=== PATIENT | male | born 1960 | race African-American/Black ===

== ENCOUNTER 2018-09-24 18:43 | Inpatient (IN) ==
[2018-09-24] MEDS ORDERED: SODIUM CHLORIDE 0.9% 1000ML 1,000 ML IV ONE (18:57)
--- NOTE | 2018-09-24 19:14 | XRay Report ---
XR chest 1V portable CLINICAL HISTORY: 58 years-old Male presenting with Sepsis. TECHNIQUE: Portable upright AP view of the chest was obtained. COMPARISON: 09/23/2018. FINDINGS: Atherosclerosis of the aortic arch. Cardiac silhouette mildly enlarged. No focal opacity. No large ef fusion or pneumothorax. Osseous structures normal. Upper abdomen normal. IMPRESSION: 1. Mildly cardiomegaly. No other convincing evidence of acute cardiopulmonary disease. Electronically signed by: Alon Corcoran M.D. 09/24/2018 7:12 PM
--- NOTE | 2018-09-24 19:17 | Emergency Department Note ---
Entered by Mone Rider acting as a scribe for Jerry Dominique DO History of Present Illness General Chief complaint: Abnormal Labs/Diagnostic Testing Stated complaint: ABN LAB Source: patient Limitations: no limitations History of Present Illness Provider complaint: Abnormal Labs Onset (ago): day(s) 4 Maximum Pain Intensity: 8 Associated symptoms: + denies other symptoms (-urinary symptoms), + diaphoresis, + fever/chills and + other (+muscle aches); no cough and no rash Treatments prior to arrival: other (+Levaquin) The patient is a 58 year old male who presents to the Emergency Room for abnormal labs. The patient states that he began feeling sick 4 days prior to arrival. The patient states that he has muscle aches, diaphoresis, and fevers. The patient denies any cough, urinary symptoms, or rashes. The patient states that he was at the ED yesterday for his illness but states that he was discharged with Levaquin. The patient states that he has a history of type 2 diabetes. Home Medications Home Medications Medication Instructions Recorded Confirmed Type acetaminophen 1,000 mg PO QID PRN 09/23/18 09/24/18 History aspirin [Aspirin Low Dose] 81 mg PO DAILY 09/23/18 09/24/18 History atorvastatin 40 mg PO HS 09/23/18 09/24/18 History bismuth subsalicylate [Bismatrol] 1,050 mg PO QID 09/23/18 09/24/18 History cyanocobalamin (vitamin B-12) 100 mcg PO DAILY 09/23/18 09/24/18 History [Vitamin B-12] duloxetine 60 mg PO HS 09/23/18 09/24/18 History folic acid 1 mg PO DAILY 09/23/18 09/24/18 History insulin NPH and regular human 40 unit SUBCUT BID 09/23/18 09/24/18 History [Humulin 70/30 U-100 Insulin] insulin regular human [Humulin R 1 sliding scale dose SUBCUT 09/23/18 09/24/18 History Regular U-100 Insuln] USEASDIRECTD lisinopril 2.5 mg PO DAILY 09/23/18 09/24/18 History metformin 1,000 mg PO BID 09/23/18 09/24/18 History timolol 1 drp OPB BID 09/23/18 09/24/18 History ibuprofen 400 mg PO QID PRN 09/24/18 09/24/18 History levofloxacin 750 mg PO BID 09/24/18 09/24/18 History Allergies Allergy/AdvReac Type Severity Reaction Status Date / Time No Known Allergies Allergy Unverified 09/24/18 20:24 Past Med/Surg History Medical History Hepatitis C (Chronic) Diabetes (Chronic) No significant family history No significant past surgical history Social History Preferred Language: Indonesian Communication Ability: Effective Top Lift Cutter Required: No Beliefs That Will Affect Care: None Current Living Situation: Other Current Living Situation Comment: [facility] Other Information That Helps Us Care for You: No Feels Safe at Home: Yes Safety Concerns: Feels Safe At This Time Smoking Status: Never smoker Hx Alcohol Use: No Hx Substance Use: No Review of Systems See HPI for pertinent positives & negatives. and A total of 10 systems reviewed and were otherwise negative Physical Exam Vital Signs Vital Signs - 24 hr 09/24/18 18:47 09/24/18 18:57 09/24/18 19:02 Temperature 36.9 C 37.9 C H Temperature Source Oral Oral Sepsis Recent Fever Within 48 Hours Yes Sepsis New/Unexplained Change in Mental Status No Sepsis Action Taken by Nursing No Action Required Pulse Rate 83 Pulse Rate [Finger] Respiratory Rate 18 Blood Pressure 136/70 Blood Pressure [Right Arm] Blood Pressure Mean 92 Blood Pressure Mean [Right Arm] Pulse Oximetry 96 97 Oxygen Delivery Method Room Air Room Air 09/24/18 19:15 09/24/18 20:40 Temperature 37.6 C H Temperature Source Oral Sepsis Recent Fever Within 48 Hours Sepsis New/Unexplained Change in Mental Status Sepsis Action Taken by Nursing Pulse Rate Pulse Rate [Finger] 76 69 Respiratory Rate 18 18 Blood Pressure Blood Pressure [Right Arm] 135/67 142/72 H Blood Pressure Mean Blood Pressure Mean [Right Arm] 89 95 Pulse Oximetry 95 99 Oxygen Delivery Method Room Air Room Air GENERAL: Patient is awake, alert, and in no acute distress.Patient is resting comfortably and showing no signs of anxiety EYES: The conjunctivae are clear. The pupils are round and reactive. EARS, NOSE, MOUTH AND THROAT: The nose is without any evidence of any deformity. Mucous membranes are moist.Tongue is midline NECK: The neck is nontender and supple. RESPIRATORY: Normal respiratory effort is noted. There is no evidence of wheezing rhonchi or rales to auscultation. CARDIOVASCULAR: Regular rate and rhythm noted. There no murmurs rubs or gallops normal S1 normal S2 GASTROINTESTINAL: The abdomen is soft. Bowel sounds are present in all quadrants. Abdomen is nontender. : Circumcised male genitalia was appreciated. There were no lesions or ulcerations noted. Testicles were descended and nontender bilaterally. Scant discharge was noted at the urethral meatus. MUSCULOSKELETAL/EXTREMITIES: There is no evidence of gross deformity. Full range of motion is noted in the hips and shoulders. SKIN: There is no obvious evidence of any rash. Trace pedal edema was noted gerardo aterally. NEUROLOGIC: Patient is awake alert and oriented x3. Course 1851: The patient was evaluated in room C2B, and a complete history and physical examination were performed. 2014: I checked on the patient. The patient was updated on their imaging and lab results. 2119: I discussed the patient's case with Dr[facility] who will evaluate the patient for further hospitalization. Consultations Consultation #1: Dr. Tera Patel Time: 20:15 Administered Medications Aspirin (Ecotrin Ectab) 81 mg PO DAILY PAUL Stop: 10/25/18 08:59 Last Admin: 09/25/18 08:49 Dose: 81 mg Documented by: [id number] Cyanocobalamin (Vitamin B-12) 100 mcg PO DAILY PAUL Stop: 10/25/18 08:59 Last Admin: 09/25/18 08:50 Dose: 100 mcg Documented by: [id number] Enoxaparin Sodium (Lovenox) 40 mg SQ Q24H PAUL Stop: 10/25/18 08:59 Last Admin: 09/25/18 08:50 Dose: 40 mg Documented by: [id number] Folic Acid (Folvite) 1 mg PO DAILY PAUL Stop: 10/25/18 08:59 Last Admin: 09/25/18 08:49 Dose: 1 mg Documented by: [id number] Sodium Chloride (Nss 1000ml) 1,000 mls @ 100 mls/hr IV .Q10H PAUL Stop: 10/24/18 22:46 Last Admin: 09/25/18 09:12 Dose: 100 mls/hr Documented by: [id number] Infusion: 09/25/18 09:12 Dose: 100 mls/hr Documented by: [id number] Admin: 09/24/18 23:35 Dose: 100 mls/hr Documented by: [id number] Piperacillin Sod/Tazobactam (Sod 4.5 gm/ Dextrose) 120 mls @ 30 mls/hr IV Q8H [facility]; Protocol Stop: 10/09/18 03:59 Last Admin: 09/25/18 11:33 Dose: 30 mls/hr Documented by: [id number] Infusion: 09/25/18 07:38 Dose: 0 mls/hr Documented by: [id number] Admin: 09/25/18 03:15 Dose: 30 mls/hr Documented by: [id number] Famotidine 20 mg/ Syringe 5 mls @ 2.5 mls/min IV BID [facility] Stop: 10/25/18 05:24 Last Admin: 09/25/18 05:43 Dose: 2.5 mls/min Documented by: [id number] Vancomycin HCl 1,250 mg/ (Sodium Chloride) 275 mls @ 125 mls/hr IV Q12 [facility] Stop: 10/09/18 08:59 Last Infusion: 09/25/18 11:23 Dose: 0 mls/hr Documented by: [id number] Admin: 09/25/18 08:49 Dose: 125 mls/hr Documented by: [id number] Insulin Aspart (Novolog Flexpen) 0 units SC ACHS [facility] Stop: 10/25/18 07:29 Last Admin: 09/25/18 12:46 Dose: 5 units Documented by: [id number] Cosigned by: [id number] Admin: 09/25/18 08:55 Dose: 3 units Documented by: [id number] Cosigned by: [id number] Insulin Human Isoph/Insulin Regular (Novolin 70/30 Regular) 40 units SQ BIDM [facility] Stop: 10/25/18 07:59 Last Admin: 09/25/18 08:51 Dose: 40 units Documented by: [id number] Cosigned by: [id number] Timolol Maleate (Timoptic 0.5% Oph) 1 drops OPB BID [facility] Stop: 10/25/18 08:59 Last Admin: 09/25/18 08:49 Dose: 1 drops Documented by: [id number] Discontinued Medications Diphenhydramine HCl (Benadryl) 25 mg IV NOW STA Stop: 09/25/18 05:22 Last Admin: 09/25/18 05:43 Dose: 25 mg Documented by: [id number] Sodium Chloride (Nss 1000ml) 1,000 mls @ 999 mls/hr IV .Q1H1M ONE Stop: 09/24/18 19:57 Last Infusion: 09/24/18 20:17 Dose: 0 mls/hr Documented by: [id number] Admin: 09/24/18 19:16 Dose: 999 mls/hr Documented by: [id number] Levofloxacin/Dextrose (Levaquin/D5w) 750 mg in 150 mls @ 100 mls/hr IV NOW STA Stop: 09/24/18 22:36 Last Infusion: 09/24/18 23:35 Dose: 0 mls/hr Documented by: [id number] Admin: 09/24/18 21:35 Dose: 100 mls/hr Documented by: [id number] Vancomycin HCl 2,250 mg/ (Sodium Chloride) 545 mls @ 200 mls/hr IV NOW ONE; Protocol Stop: 09/24/18 23:50 Last Infusion: 09/25/18 00:03 Dose: 0 mls/hr Documented by: [id number] Admin: 09/24/18 21:43 Dose: 200 mls/hr Documented by: [id number] Piperacillin Sod/Tazobactam (Sod 4.5 gm/ Dextrose) 120 mls @ 230 mls/hr IV NOW STA; Protocol Stop: 09/24/18 23:28 Last Infusion: 09/25/18 00:36 Dose: 0 mls/hr Documented by: [id number] Admin: 09/25/18 00:05 Dose: 230 mls/hr Documented by: [id number] Methylprednisolone 60 mg/ (Syringe) 0.96 mls @ 1.5 mls/min IV ONE ONE Stop: 09/25/18 05:31 Last Admin: 09/25/18 05:43 Dose: 1.5 mls/min Documented by: [id number] Medical Decision Making Differential Diagnosis Differential diagnosis includes: viral syndrome, otitis, pharyngitis, pneumonia, influenza, meningitis, urinary tract infection, sepsis, bacteremia, as well as others were entertained. Medical Records Attestation: I reviewed the patient's medical records. Home Medications Current Medication List: was personally reviewed by me Laboratory Data Attestation: I reviewed the patient's lab results. Result diagrams: 09/25/18 05:21 09/25/18 05:21 Lab Results 09/24/18 09/24/18 09/24/18 Range/Units 19:49 19:49 20:23 WBC 12.42 H (4.8-10.8) K/uL RBC 4.43 L (4.7-6.1) M/uL Hgb 13.7 L (14.0-18.0) g/dL Hct 38.5 L (42-52) % MCV 86.9 (80-100) fL MCH 30.9 (25-34) pg MCHC 35.6 (32-36) g/dL RDW Std Deviation 42.2 (36.4-46.3) fL RDW Coeff of Marjorie 13.1 (11.5-14.5) % Plt Count 118 L (130-400) K/uL MPV 11.0 H (7.4-10.4) fL Immature Gran % (Auto) 0.6 % Neut % (Auto) 75.7 % Lymph % (Auto) 10.9 % Heard % (Auto) 12.5 % Eos % (Auto) 0.1 % Baso % (Auto) 0.2 % Immature Gran # (Auto) 0.08 H (0.00-0.02) K/uL Neut # (Auto) 9.40 H (1.4-6.5) K/uL Lymph # (Auto) 1.35 (1.2-3.4) K/uL Heard # (Auto) 1.55 H (0.11-0.59) K/uL Eos # (Auto) 0.01 (0-0.5) K/uL Baso # (Auto) 0.03 (0-0.2) K/uL ESR (0-14) mm/hr PT (9.0-12.0) Seconds INR (0.9-1.1) APTT (21.0-31.0) Seconds PTT Ratio VBG pH (7.36-7.41) VBG pCO2 (38-50) mmHg VBG pO2 mmHg VBG HCO3 mmol/L VBG O2 Saturation % VBG Base Excess mEq/L Barometric Pressure mm/Hg Sodium (136-145) mmol/L Potassium (3.5-5.1) mmol/L Chloride (98-107) mmol/L Carbon Dioxide (21-32) mmol/L Anion Gap (3-11) BUN (7-18) mg/dl Creatinine (0.6-1.4) mg/dl Est Cr Clr Drug Dosing ml/min Est GFR ( Amer) Est GFR (Non-Af Amer) BUN/Creatinine Ratio (10-20) Glucose (70-99) mg/dl Estimat Average Glucose mg/dl Hemoglobin A1c (4.5-5.6) % Lactate (0.4-2.0) mmol/L Calcium (8.5-10.1) mg/dl Magnesium (1.8-2.4) mg/dl Total Bilirubin (0.2-1) mg/dl AST (15-37) U/L ALT (12-78) U/L Alkaline Phosphatase (45-117) U/L Total Creatine Kinase (39-308) U/L CK-MB (CK-2) (0.5-3.6) ng/ml CK/CKMB % Calc Troponin I (0-0.045) ng/ml Total Protein (6.4-8.2) gm/dl Albumin (3.4-5.0) gm/dl Globulin (2.5-4.0) gm/dl Albumin/Globulin Ratio (0.9-2) Procalcitonin (0-0.5) ng/ml Urine Color [place]er Urine Appearance Clear (Clear) Urine pH 5.5 (4.5-7.5) Ur Specific [place] 1.039 H (1.000-1.030) Urine Protein 2+ H (Negative) Urine Glucose (UA) Trace H (Negative) Urine Ketones 1+ H (Negative) Urine Blood Negative (Negative) Urine Nitrite Positive A (Negative) Urine Bilirubin Negative (Negative) Urine Urobilinogen Positive H (Negative) Ur Leukocyte Esterase Trace H (Negative) Urine WBC (Auto) 1-5 (0-5) /hpf Urine RBC (Auto) 5-10 H (0-4) /hpf U Hyaline Cast (Auto) 5-10 H (0-5) /lpf U Epithel Cells (Auto) >30 H (0-5) /lpf Urine Bacteria (Auto) Negative (Negative) Urine Opiates Screen Pos H (Neg) Ur Methadone, Qual Neg (Neg) Urine Barbiturates Neg (Neg) Ur Phencyclidine (PCP) Neg (Neg) U Amphetamin/Meth Scrn Neg (Neg) MDMA (Ecstasy) Screen Neg (Neg) U Benzodiazepines Scrn Neg (Neg) Ur Cocaine Metabolite Neg (Neg) U Marijuana (THC) Screen Neg (Neg) 09/24/18 09/24/18 09/24/18 Range/Units 20:23 20:23 20:23 WBC (4.8-10.8) K/uL RBC (4.7-6.1) M/uL Hgb (14.0-18.0) g/dL Hct (42-52) % MCV (80-100) fL MCH (25-34) pg MCHC (32-36) g/dL RDW Std Deviation (36.4-46.3) fL RDW Coeff of Marjorie (11.5-14.5) % Plt Count (130-400) K/uL MPV (7.4-10.4) fL Immature Gran % (Auto) % Neut % (Auto) % Lymph % (Auto) % Heard % (Auto) % Eos % (Auto) % Baso % (Auto) % Immature Gran # (Auto) (0.00-0.02) K/uL Neut # (Auto) (1.4-6.5) K/uL Lymph # (Auto) (1.2-3.4) K/uL Heard # (Auto) (0.11-0.59) K/uL Eos # (Auto) (0-0.5) K/uL Baso # (Auto) (0-0.2) K/uL ESR 54 H (0-14) mm/hr PT 12.6 H (9.0-12.0) Seconds INR 1.2 H (0.9-1.1) APTT 29.3 (21.0-31.0) Seconds PTT Ratio 1.1 VBG pH (7.36-7.41) VBG pCO2 (38-50) mmHg VBG pO2 mmHg VBG HCO3 mmol/L VBG O2 Saturation % VBG Base Excess mEq/L Barometric Pressure mm/Hg Sodium 141 (136-145) mmol/L Potassium 3.6 (3.5-5.1) mmol/L Chloride 109 H (98-107) mmol/L Carbon Dioxide 26 (21-32) mmol/L Anion Gap 7.0 (3-11) BUN 17 (7-18) mg/dl Creatinine 1.14 (0.6-1.4) mg/dl Est Cr Clr Drug Dosing 87.4 ml/min Est GFR ( Amer) 81.1 Est GFR (Non-Af Amer) 70.0 BUN/Creatinine Ratio 15.3 (10-20) Glucose 144 H (70-99) mg/dl Estimat Average Glucose mg/dl Hemoglobin A1c (4.5-5.6) % Lactate (0.4-2.0) mmol/L Calcium 7.9 L (8.5-10.1) mg/dl Magnesium 2.0 (1.8-2.4) mg/dl Total Bilirubin 0.9 D (0.2-1) mg/dl AST 36 (15-37) U/L ALT 23 (12-78) U/L Alkaline Phosphatase 67 (45-117) U/L Total Creatine Kinase 410 H (39-308) U/L CK-MB (CK-2) < 1.0 (0.5-3.6) ng/ml CK/CKMB % Calc TNP Troponin I 0.017 (0-0.045) ng/ml Total Protein 6.3 L D (6.4-8.2) gm/dl Albumin 2.3 L (3.4-5.0) gm/dl Globulin 4.0 (2.5-4.0) gm/dl Albumin/Globulin Ratio 0.6 L (0.9-2) Procalcitonin (0-0.5) ng/ml Urine Color Urine Appearance (Clear) Urine pH (4.5-7.5) Ur Specific [place] (1.000-1.030) Urine Protein (Negative) Urine Glucose (UA) (Negative) Urine Ketones (Negative) Urine Blood (Negative) Urine Nitrite (Negative) Urine Bilirubin (Negative) Urine Urobilinogen (Negative) Ur Leukocyte Esterase (Negative) Urine WBC (Auto) (0-5) /hpf Urine RBC (Auto) (0-4) /hpf U Hyaline Cast (Auto) (0-5) /lpf U Epithel Cells (Auto) (0-5) /lpf Urine Bacteria (Auto) (Negative) Urine Opiates Screen (Neg) Ur Methadone, Qual (Neg) Urine Barbiturates (Neg) Ur Phencyclidine (PCP) (Neg) U Amphetamin/Meth Scrn (Neg) MDMA (Ecstasy) Screen (Neg) U Benzodiazepines Scrn (Neg) Ur Cocaine Metabolite (Neg) U Marijuana (THC) Screen (Neg) 09/24/18 09/24/18 09/24/18 Range/Units 20:23 20:23 20:23 WBC (4.8-10.8) K/uL RBC (4.7-6.1) M/uL Hgb (14.0-18.0) g/dL Hct (42-52) % MCV (80-100) fL MCH (25-34) pg MCHC (32-36) g/dL RDW Std Deviation (36.4-46.3) fL RDW Coeff of Marjorie (11.5-14.5) % Plt Count (130-400) K/uL MPV (7.4-10.4) fL Immature Gran % (Auto) % Neut % (Auto) % Lymph % (Auto) % Heard % (Auto) % Eos % (Auto) % Baso % (Auto) % Immature Gran # (Auto) (0.00-0.02) K/uL Neut # (Auto) (1.4-6.5) K/uL Lymph # (Auto) (1.2-3.4) K/uL Heard # (Auto) (0.11-0.59) K/uL Eos # (Auto) (0-0.5) K/uL Baso # (Auto) (0-0.2) K/uL ESR (0-14) mm/hr PT (9.0-12.0) Seconds INR (0.9-1.1) APTT (21.0-31.0) Seconds PTT Ratio VBG pH 7.45 H (7.36-7.41) VBG pCO2 34 L (38-50) mmHg VBG pO2 44 mmHg VBG HCO3 23 mmol/L VBG O2 Saturation 83.3 % VBG Base Excess -0.7 mEq/L Barometric Pressure 732.1 mm/Hg Sodium (136-145) mmol/L Potassium (3.5-5.1) mmol/L Chloride (98-107) mmol/L Carbon Dioxide (21-32) mmol/L Anion Gap (3-11) BUN (7-18) mg/dl Creatinine (0.6-1.4) mg/dl Est Cr Clr Drug Dosing ml/min Est GFR ( Amer) Est GFR (Non-Af Amer) BUN/Creatinine Ratio (10-20) Glucose (70-99) mg/dl Estimat Average Glucose mg/dl Hemoglobin A1c (4.5-5.6) % Lactate 1.3 (0.4-2.0) mmol/L Calcium (8.5-10.1) mg/dl Magnesium (1.8-2.4) mg/dl Total Bilirubin (0.2-1) mg/dl AST (15-37) U/L ALT (12-78) U/L Alkaline Phosphatase (45-117) U/L Total Creatine Kinase (39-308) U/L CK-MB (CK-2) (0.5-3.6) ng/ml CK/CKMB % Calc Troponin I (0-0.045) ng/ml Total Protein (6.4-8.2) gm/dl Albumin (3.4-5.0) gm/dl Globulin (2.5-4.0) gm/dl Albumin/Globulin Ratio (0.9-2) Procalcitonin 0.49 (0-0.5) ng/ml Urine Color Urine Appearance (Clear) Urine pH (4.5-7.5) Ur Specific [place] (1.000-1.030) Urine Protein (Negative) Urine Glucose (UA) (Negative) Urine Ketones (Negative) Urine Blood (Negative) Urine Nitrite (Negative) Urine Bilirubin (Negative) Urine Urobilinogen (Negative) Ur Leukocyte Esterase (Negative) Urine WBC (Auto) (0-5) /hpf Urine RBC (Auto) (0-4) /hpf U Hyaline Cast (Auto) (0-5) /lpf U Epithel Cells (Auto) (0-5) /lpf Urine Bacteria (Auto) (Negative) Urine Opiates Screen (Neg) Ur Methadone, Qual (Neg) Urine Barbiturates (Neg) Ur Phencyclidine (PCP) (Neg) U Amphetamin/Meth Scrn (Neg) MDMA (Ecstasy) Screen (Neg) U Benzodiazepines Scrn (Neg) Ur Cocaine Metabolite (Neg) U Marijuana (THC) Screen (Neg) 09/24/18 Range/Units 20:23 WBC (4.8-10.8) K/uL RBC (4.7-6.1) M/uL Hgb (14.0-18.0) g/dL Hct (42-52) % MCV (80-100) fL MCH (25-34) pg MCHC (32-36) g/dL RDW Std Deviation (36.4-46.3) fL RDW Coeff of Marjorie (11.5-14.5) % Plt Count (130-400) K/uL MPV (7.4-10.4) fL Immature Gran % (Auto) % Neut % (Auto) % Lymph % (Auto) % Heard % (Auto) % Eos % (Auto) % Baso % (Auto) % Immature Gran # (Auto) (0.00-0.02) K/uL Neut # (Auto) (1.4-6.5) K/uL Lymph # (Auto) (1.2-3.4) K/uL Heard # (Auto) (0.11-0.59) K/uL Eos # (Auto) (0-0.5) K/uL Baso # (Auto) (0-0.2) K/uL ESR (0-14) mm/hr PT (9.0-12.0) Seconds INR (0.9-1.1) APTT (21.0-31.0) Seconds PTT Ratio VBG pH (7.36-7.41) VBG pCO2 (38-50) mmHg VBG pO2 mmHg VBG HCO3 mmol/L VBG O2 Saturation % VBG Base Excess mEq/L Barometric Pressure mm/Hg Sodium (136-145) mmol/L Potassium (3.5-5.1) mmol/L Chloride (98-107) mmol/L Carbon Dioxide (21-32) mmol/L Anion Gap (3-11) BUN (7-18) mg/dl Creatinine (0.6-1.4) mg/dl Est Cr Clr Drug Dosing ml/min Est GFR ( Amer) Est GFR (Non-Af Amer) BUN/Creatinine Ratio (10-20) Glucose (70-99) mg/dl Estimat Average Glucose 189 mg/dl Hemoglobin A1c 8.2 H (4.5-5.6) % Lactate (0.4-2.0) mmol/L Calcium (8.5-10.1) mg/dl Magnesium (1.8-2.4) mg/dl Total Bilirubin (0.2-1) mg/dl AST (15-37) U/L ALT (12-78) U/L Alkaline Phosphatase (45-117) U/L Total Creatine Kinase (39-308) U/L CK-MB (CK-2) (0.5-3.6) ng/ml CK/CKMB % Calc Troponin I (0-0.045) ng/ml Total Protein (6.4-8.2) gm/dl Albumin (3.4-5.0) gm/dl Globulin (2.5-4.0) gm/dl Albumin/Globulin Ratio (0.9-2) Procalcitonin (0-0.5) ng/ml Urine Color Urine Appearance (Clear) Urine pH (4.5-7.5) Ur Specific [place] (1.000-1.030) Urine Protein (Negative) Urine Glucose (UA) (Negative) Urine Ketones (Negative) Urine Blood (Negative) Urine Nitrite (Negative) Urine Bilirubin (Negative) Urine Urobilinogen (Negative) Ur Leukocyte Esterase (Negative) Urine WBC (Auto) (0-5) /hpf Urine RBC (Auto) (0-4) /hpf U Hyaline Cast (Auto) (0-5) /lpf U Epithel Cells (Auto) (0-5) /lpf Urine Bacteria (Auto) (Negative) Urine Opiates Screen (Neg) Ur Methadone, Qual (Neg) Urine Barbiturates (Neg) Ur Phencyclidine (PCP) (Neg) U Amphetamin/Meth Scrn (Neg) MDMA (Ecstasy) Screen (Neg) U Benzodiazepines Scrn (Neg) Ur Cocaine Metabolite (Neg) U Marijuana (THC) Screen (Neg) Imaging Data Radiologist's Impression: Radiology results as stated below per my review and the radiologist's interpretation: XR chest 1V portable CLINICAL HISTORY: 58 years-old Male presenting with Sepsis. TECHNIQUE: Portable upright AP view of the chest was obtained. COMPARISON: 09/23/2018. FINDINGS: Atherosclerosis of the aortic arch. Cardiac silhouette mildly enlarged. No focal opacity. No large effusion or pneumothorax. Osseous structures normal. Upper abdomen normal. IMPRESSION: 1. Mildly cardiomegaly. No other convincing evidence of acute cardiopulmonary disease. Electronically signed by: Alon Corcoran M.D. 09/24/2018 7:12 PM ECG Data Attestation: I personally reviewed and interpreted this ECG as follows: Indication: other (+fever) Rate (beats per minute): 74 Rhythm: normal sinus Findings: no acute ischemic change and no ectopy Comparison ECG Date: no prior available Blood Pressure Blood Pressure Findings: Elevated blood pressure Blood Pressure Disposition: elevated BP felt to be situational MDM Narrative The patient is a 58-year-old male who presented to the emergency department from the [facility] for an evaluation of febrile illness. The patient was seen in our facility yesterday for similar complaints. No definite source of infection could be found but the patient was started on Levaquin earlier today. The patient was found to have a positive blood culture. A second positive blood culture from the same set was returned today so the patient was instructed to return to the emergency department because of persistent fever. He was treated with IV fluids as well as IV antibiotics in the emergency department. I discussed the patient's laboratory and radiographic studies with him. Because of his past medical history and the persistence of fever and bacteremia I discussed his case with the on-call [facility] hospitalist. They have agreed to evaluate the patient in the emergency department for further management and disposition. Impression & Plan Fever, Diabetes, Bacteremia Discharge Plan Visit Data *Final* Discharge Date/Time: 09/24/18 22:22 Chief Complaint: Abnormal Labs/Diagnostic Testing Stated Complaint: ABN LAB ED Provider: Jerry Dominique Discharge Problem: Fever, Diabetes, Bacteremia Patient Disposition: Admitted As Inpatient Discharge Instructions Interventions: ED Discharge Assessment Last Done: 09/24/18 22:22 Discharge Problem: Fever Qualifiers: Fever type: unspecified Qualified Code(s): R50.9 - Fever, unspecified Diabetes Qualifiers: Diabetes mellitus type: type 2 Diabetes mellitus superintendent [employer] insulin use: unspecified detention insulin use status Diabetes mellitus complication status: with other specified complication Qualified Code(s): E11.69 - Type 2 diabetes mellitus with other specified complication The scribe's documentation has been prepared under my direction and personally reviewed by me in its entirety. I confirm that the note above accurately reflects all work, treatment, procedures, and medical decision making performed by me.
[2018-09-24 20:01] LABS: Appearance Urine Clear (Clear); Bacteria Urine Automated Negative (Negative); Blood Urine Negative (Negative); Color Urine Orange; Epithelial Cell Urine Auto >30 /lpf (0-5); Glucose Urine UA Trace (Negative); Ketones Urine 1+ (Negative); Leukocyte Esterase Urine Trace (Negative); Nitrite Urine Positive (Negative); Protein Urine 2+ (Negative); Specific Gravity Urine 1.039 (1.000-1.030); Urobilinogen Urine Positive (Negative); pH Urine 5.5 (4.5-7.5)
[2018-09-24 20:06] LABS: Bilirubin Urine Negative (Negative); Ictotest Urine Negative (Negative)
[2018-09-24 20:31] LABS: Basophils # (auto) 0.03 K/uL (0-0.2); Basophils % (auto) 0.2 %; Eosinophils # (auto) 0.01 K/uL (0-0.5); Eosinophils % (auto) 0.1 %; Hematocrit (blood only) 38.5 % (42-52); Hemoglobin 13.7 g/dL (14.0-18.0); Immature Granulocytes # (auto) 0.08 K/uL (0.00-0.02); Immature Granulocytes % (auto) 0.6 %; Lymphocytes # (auto) 1.35 K/uL (1.2-3.4); Lymphocytes % (auto) 10.9 %; Mean Corpuscular Hgb Conc 35.6 g/dL (32-36); Mean Corpuscular Volume 86.9 fL (80-100); Monocytes # (auto) 1.55 K/uL (0.11-0.59); Monocytes % (auto) 12.5 %; Neutrophils % (auto) 75.7 %; Platelet Count 118 K/uL (130-400); RDW Coefficient of Variation 13.1 % (11.5-14.5); RDW Standard Deviation 42.2 fL (36.4-46.3); Red Blood Count 4.43 M/uL (4.7-6.1); White Blood Count 12.42 K/uL (4.8-10.8)
[2018-09-24 20:33] LABS: Amphetamines+Metham, Urine Neg (Neg); Barbiturates, Urine Neg (Neg); Benzodiazepine, Urine Neg (Neg); Cocaine, Urine Neg (Neg); MDMA (Ecstacy), Urine Neg (Neg); Methadone, Urine Neg (Neg); Opiate, Urine Pos (Neg); Phencyclidine, Urine Neg (Neg)
[2018-09-24 20:38] LABS: Base Excess VBG -0.7 mEq/L; Oxygen Saturation VBG 83.3 %; pH VBG 7.45 (7.36-7.41)
[2018-09-24 20:50] LABS: INR 1.2 (0.9-1.1); Partial Thromboplastin Ratio 1.1; Partial Thromboplastin Time 29.3 Seconds (21.0-31.0); Prothrombin Time 12.6 Seconds (9.0-12.0)
[2018-09-24 20:51] LABS: Alanine Aminotransferase 23 U/L (12-78); Albumin Level 2.3 gm/dl (3.4-5.0); Aspartate Aminotransferase 36 U/L (15-37); BUN Creatinine Ratio 15.3 (10-20); Blood Urea Nitrogen 17 mg/dl (7-18); Calcium 7.9 mg/dl (8.5-10.1); Carbon Dioxide 26 mmol/L (21-32); Chloride 109 mmol/L (98-107); Creatinine Clr Calc Pharmacy 87.4 ml/min; Est GFR (African American) 81.1; Glucose 144 mg/dl (70-99); Potassium 3.6 mmol/L (3.5-5.1); Sodium 141 mmol/L (136-145)
[2018-09-24 21:01] LABS: Albumin Globulin Ratio 0.6 (0.9-2); Alkaline Phosphatase 67 U/L (45-117); Bilirubin,Total 0.9 mg/dl (0.2-1); Creatine Kinase 410 U/L (39-308); Creatine Kinase MB < 1.0 ng/ml (0.5-3.6); Total Protein 6.3 gm/dl (6.4-8.2); Troponin I 0.017 ng/ml (0-0.045)
[2018-09-24] MEDS ORDERED: VANCOMYCIN CONSULT ACTIVE PRN ×2 (21:07→22:47)
[2018-09-24] MEDS ORDERED: VANCOMYCIN HCL 2,250 MG in SODIUM CHLORIDE 0.9% 500 ML IV ONE (21:07)
[2018-09-24] MEDS ORDERED: LEVOFLOXACIN/D5W 750 MG/150 ML BAG IV STA (21:07)
[2018-09-24] MEDS ORDERED: PIPERACILL/TAZOBAC CONSULT ACTIVE PRN (22:47)
[2018-09-24] MEDS ORDERED: ACETAMINOPHEN 325 MG TAB PO PRN (22:47)
[2018-09-24] MEDS ORDERED: ONDANSETRON INJ 2 MG/ML 2 ML VIAL IV PRN (22:47)
[2018-09-24] MEDS ORDERED: VANCOMYCIN HCL 1,000 MG in SODIUM CHLORIDE 0.9% 250 ML IV SCH (22:47)
[2018-09-24] MEDS ORDERED: NITROGLYCERIN SL 0.4 MG/TAB TAB SL PRN (22:47)
[2018-09-24] MEDS ORDERED: PIPERACILLIN/TAZOBACTAM 4.5 GM in DEXTROSE 5% 100 ML IV STA (22:57)
[2018-09-24] MEDS ORDERED: GLUCOSE 10 TABS/TUBE PO PRN (23:15)
[2018-09-24] MEDS ORDERED: DEXTROSE 50% 50 ML SYRINGE IV PRN (23:15)
[2018-09-24] MEDS ORDERED: GLUCAGON FOR INJ 1 MG VIAL SQ PRN (23:15)
[2018-09-24] MEDS ORDERED: GLUCOSE 40% GEL 15 GM TUBE PO PRN (23:15)
[2018-09-24] MEDS ORDERED: CARBOHYDRATES FOR HYPOGLYCEMIA PO PRN (23:15)
[2018-09-24] MEDS: SODIUM CHLORIDE 0.9% 1000ML 1,000 ML IV SCH (23:35)
--- NOTE | 2018-09-25 01:11 | History and Physical Report ---
DATE OF ADMISSION: 09/24/2018 CHIEF COMPLAINT: Fever and bacteremia. HISTORY OF PRESENT ILLNESS: This patient is a 58-year-old male who is coming from detention with past medical history significant for diabetes, hypertension, high cholesterol, depression and hepatitis C who came to the Emergency Room yesterday because of fever since last Saturday, feeling weak and yesterday he also had episode of vomiting. In the Emergency Room, his point of care lactic acid was slightly high 2.2. He was given I.V. fluids although rest of the workup was negative. His white count was 11. He was discharged back to detention to follow up, but today in the morning on of his blood culture came back as positive for Gram positive cocci so he was started on Levaquin,his second set also came back Gram positive cocci and also he is still having low grade temperatures so he was transferred back here. The patient currently is hemodynamically stable, lactic acid is normal, white count is 12,000, temperature is 37.6. He complains of fevers since last Saturday and since yesterday, he is having severe sweating on the face and also some swelling in the face. Yesterday, he had an episode of vomiting. Today, he had a couple of episodes of diarrhea, no blood in the stools or black stools. No burning micturition. No hematuria. Denies any cough. No blurred vision. No sore throat. No difficulty swallowing. Appetite is not good since last few days. No chest pain. No shortness of breath. No abdominal pain. No swelling in the legs. No rash. He is having some restless legs syndrome. He is not on any medications for that. Currently, his vitals are stable. ALLERGIES: No known drug allergies. PAST MEDICAL HISTORY: As mentioned above. PAST SURGICAL HISTORY: Denies any surgical history. MEDICATIONS: Tylenol prn, aspirin,atorvastatin,vitamin b12,duloxetine,folic acid, ibuprofen prn, Humulin 70/30 40units bid, lisinopril, metformin,timolol. FAMILY HISTORY: His mother had leukemia. SOCIAL HISTORY: Denies smoking. No alcohol. No drug use. Lives in the detention. As per the Emergency Room notes, he is in detention for last 28 years. REVIEW OF SYMPTOMS: As per HPI. Rest of review of symptoms negative. PHYSICAL EXAMINATION: GENERAL: The patient is obese, not in acute distress. VITAL SIGNS: Temperature 37.6, pulse 69, respiratory rate 18, blood pressure 142/72 and oxygen 95 on room air. HEENT: No pallor. No icterus. Pupils are equal, round and reactive to light. slight selling of the face mainly in maxillary region. maxillary tenderness on palpation present. Oral mucosa normal. NECK: No JVD. No neck masses. No carotid bruits. CARDIOVASCULAR: S1, S2 heard. Regular rate and rhythm. No murmur. No gallop. RESPIRATORY SYSTEM: Normal AP diameter. No accessory muscle use. No wheezing. No crackles. ABDOMEN: Soft. Bowel sounds present. Nontender. No distention. CENTRAL NERVOUS SYSTEM: Cranial nerves II through XII grossly intact. Nonfocal. EXTREMITIES: dry skin changes seen LABORATORY DATA: WBC 12.4, hemoglobin 13.7, hematocrit 38.5 and platelets 118. PT 12.6. INR 1.2. Venous pH is 7.4 and pCO2 of 34. Sodium 141, potassium 3.6, chloride 109, bicarbonate 26, BUN 17, creatinine 1.1, serum glucose 144, lactate 1.3, calcium 7.9, magnesium 2, total bilirubin 0.9, AST 36, ALT 23, alkaline phosphatase 67, total creatinine kinase 14, CK-MB less than 1. Procalcitonin 0.49. Urinalysis positive for ketones and positive for nitrites and trace leukocyte esterase. Urine drug screen positive for opiates . Chest x-ray, mild cardiomegaly, no other acute cardiopulmonary disease. Electrocardiogram, normal sinus rhythm with PACs at a rate of 74 and nonspecific T-wave abnormality. ASSESSMENT AND PLAN: This is a 58-year-old male who presents with low grade fevers and bacteremia. 1. Bacteremia Gram positive cocci, came to the Emergency Room yesterday and cultures drawn showing bacteremia. No obvious source of infection. White count is 12,000 was given Levaquin in the detention today . Has mild facial swelling and tenderness in the maxillary region. We will get Sinuses CT.Possible urinary tract infection. We will empirically start him on vancomycin and Zosyn. Consult Infectious Disease.IV fluids. Follow with urine culture. Follow with hemodynamics on the tele floor. 2. Diabetes. Continue home Humulin 70/30 insulin and sliding scale. Hold metformin . 3. History of hyperlipidemia. Continue statin. 4. History of hypertension, on low dose lisinopril 5. History of depression. Continue duloxetine. 6. Deep venous thrombosis prophylaxis, Lovenox. 7. Disposition: Admit to Med/Surg Tele. Level 1 full code. discharge back to detention when the patient is stable. Addendum: later facial swelling got worse. Says on lisinopril since last 2 years.Took Levaquin on Saturday morning. Etiology? Hold lisinopril.will give a dose of iv solumedrol, iv Benadryl, iv Pepcid and monitor. MTDD
[2018-09-25] MEDS: PIPERACILLIN/TAZOBACTAM 4.5 GM in DEXTROSE 5% 100 ML IV SCH ×3 (03:15→20:25)
[2018-09-25] MEDS ORDERED: DiphenhydrAMINE HCL 50 MG/ML VIAL IV STA (05:21)
[2018-09-25] MEDS ORDERED: methylPREDNISolone 125 MG/2 ML VIAL IV STA (05:21)
[2018-09-25] MEDS ORDERED: methylPREDNISolone 60 MG in SYRINGE 0 ML IV ONE (05:30)
[2018-09-25] MEDS ORDERED: methylPREDNISolone 60 MG in SYRINGE 0 ML IV SCH (05:30)
[2018-09-25] MEDS: FAMOTIDINE 20 MG in SYRINGE 3 ML IV SCH ×2 (05:43→20:28)
[2018-09-25 05:46] LABS: Basophils # (auto) 0.02 K/uL (0-0.2); Basophils % (auto) 0.2 %; Eosinophils # (auto) 0.04 K/uL (0-0.5); Eosinophils % (auto) 0.3 %; Hemoglobin 13.9 g/dL (14.0-18.0); Immature Granulocytes # (auto) 0.05 K/uL (0.00-0.02); Immature Granulocytes % (auto) 0.4 %; Lymphocytes # (auto) 2.04 K/uL (1.2-3.4); Lymphocytes % (auto) 15.3 %; Mean Corpuscular Hgb Conc 35.6 g/dL (32-36); Mean Corpuscular Volume 86.5 fL (80-100); Mean Platelet Volume 11.1 fL (7.4-10.4); Monocytes # (auto) 1.28 K/uL (0.11-0.59); Monocytes % (auto) 9.6 %; Neutrophils # (auto) 9.87 K/uL (1.4-6.5); Neutrophils % (auto) 74.2 %; Platelet Count 124 K/uL (130-400); RDW Coefficient of Variation 13.4 % (11.5-14.5); RDW Standard Deviation 42.6 fL (36.4-46.3); Red Blood Count 4.51 M/uL (4.7-6.1)
[2018-09-25 06:04] LABS: Estimated Average Glucose 189 mg/dl; Hemoglobin A1C 8.2 % (4.5-5.6)
[2018-09-25 06:15] LABS: Albumin Level 2.1 gm/dl (3.4-5.0); BUN Creatinine Ratio 14.2 (10-20); Bilirubin Direct 0.3 mg/dl (0-0.2); Calcium 7.9 mg/dl (8.5-10.1); Creatinine Clr Calc Pharmacy 93.5 ml/min; Est GFR (African American) 87.6; Est GFR (Non-African American) 75.6; Magnesium 2.1 mg/dl (1.8-2.4); Potassium 3.7 mmol/L (3.5-5.1)
[2018-09-25 06:18] LABS: Total Protein 6.1 gm/dl (6.4-8.2)
--- NOTE | 2018-09-25 07:14 | CT Scan Report ---
SINUS CT CT DOSE: 494.71 mGy.cm HISTORY: facial swelling and pain TECHNIQUE: Multiaxial CT images of the paranasal sinuses were performed and reformatted in the hodgson l plane without the use of contrast. A dose lowering technique was utilized adhering to the principl es of ALARA. COMPARISON: None. FINDINGS: The frontal sinuses, ethmoid air cells, sphenoid sinuses, and bilateral maxillary antra are clear. The mastoid air cells are clear. The bilateral ostiomeatal units are patent. The nasal septum is midline. The orbits are unremarkable. Periapical lucencies within the right upper molar. Diffuse subcutaneous edema throughout the head and face. The visualized brain parenchyma is unremarkable. IMPRESSION: 1. The paranasal sinuses and mastoid air cells are clear. 2. Diffuse subcutaneous edema throughout the head and face. Electronically signed by: Hilario Vidal M.D. 09/25/2018 7:13 AM
[2018-09-25] MEDS: VANCOMYCIN HCL 1,250 MG in SODIUM CHLORIDE 0.9% 250 ML IV SCH ×2 (08:49→20:30)
[2018-09-25] MEDS: FOLIC ACID 1 MG TAB PO SCH (08:49)
[2018-09-25] MEDS: TIMOLOL MALEATE 0.5% OP SOLN 5 ML BTL OPB SCH ×2 (08:49→20:30)
[2018-09-25] MEDS: ASPIRIN 81 MG ECTAB PO SCH (08:49)
[2018-09-25] MEDS: CYANOCOBALAMIN (VITAMIN B-12) 100 MCG TABLET PO SCH (08:50)
[2018-09-25] MEDS: ENOXAPARIN INJ 40 MG/0.4 ML SYR SQ SCH (08:50)
[2018-09-25] MEDS: INSULIN HUMAN 70% NPH/30% REGULAR SQ SCH ×2 (08:51→17:16)
[2018-09-25] MEDS: INSULIN ASPART 100 UNITS/ML 3 ML PEN SC SCH ×4 (08:55→20:32)
[2018-09-25] MEDS ORDERED: BISMUTH SUBSALICYLATE PO SCH (09:00)
[2018-09-25] MEDS ORDERED: LISINOPRIL 2.5 MG TAB PO SCH (09:00)
[2018-09-25] MEDS: SODIUM CHLORIDE 0.9% 1000ML 1,000 ML IV SCH ×2 (09:12→19:06)
--- NOTE | 2018-09-25 10:30 | Infectious Disease Consult ---
Date of Consultation September 25, 2018 Assessment & Plan (1) Bacteremia due to Staphylococcus: 58-year-old diabetic male with staphylococcal bacteremia, not clear whether this is contaminant or related to his facial swelling. For now, we will continue patient on vancomycin and Zosyn for possibility of developing facial cellulitis. Await further culture results. Will follow. History of Present Illness Reason for Consultation: Gram-positive bacteremia Attending Physician: Silvano Diaz MD History of Present Illness 58-year-old male with history of hepatitis C, diabetes mellitus, hyperlipidemia, present for the last 28 years, who is admitted to the hospital after blood cultures drawn in the emergency room previously were positive for gram-positive cocci in clusters. Patient had a had fever, nausea and vomiting, and also complaining of pain that began at the top of his head, then went into his face associated with facial swelling. States he had significant facial swelling this morning which is since improved. Never had sinus or facial problems in the past. No recent problems with skin infections. Does occasionally shave his head. Blood cultures so far have been identified as a staphylococcal species, but PCR studies for staph aureus/MRSA are negative. Patient currently on IV vancomycin and Zosyn. He has mild leukocytosis. CT scan of the sinuses, reviewed by me, show only evidence of facial swelling. No significant sinus or mastoid disease. Allergies Allergy/AdvReac Type Severity Reaction Status Date / Time No Known Allergies Allergy Unverified 09/24/18 20:24 Home Medications Home Medications Medication Instructions Recorded Confirmed Type acetaminophen 1,000 mg PO QID PRN 09/23/18 09/24/18 History aspirin [Aspirin Low Dose] 81 mg PO DAILY 09/23/18 09/24/18 History atorvastatin 40 mg PO HS 09/23/18 09/24/18 History bismuth subsalicylate [Bismatrol] 1,050 mg PO QID 09/23/18 09/24/18 History cyanocobalamin (vitamin B-12) 100 mcg PO DAILY 09/23/18 09/24/18 History [Vitamin B-12] duloxetine 60 mg PO HS 09/23/18 09/24/18 History folic acid 1 mg PO DAILY 09/23/18 09/24/18 History insulin NPH and regular human 40 unit SUBCUT BID 09/23/18 09/24/18 History [Humulin 70/30 U-100 Insulin] insulin regular human [Humulin R 1 sliding scale dose SUBCUT 09/23/18 09/24/18 History Regular U-100 Insuln] USEASDIRECTD lisinopril 2.5 mg PO DAILY 09/23/18 09/24/18 History metformin 1,000 mg PO BID 09/23/18 09/24/18 History timolol 1 drp OPB BID 09/23/18 09/24/18 History ibuprofen 400 mg PO QID PRN 09/24/18 09/24/18 History levofloxacin 750 mg PO BID 09/24/18 09/24/18 History Patient History Medical History Hepatitis C (Chronic) Diabetes (Chronic) No significant family history No significant past surgical history Social History Preferred Language: Micronesian Communication Ability: Effective Payroll Professional Required: No Beliefs That Will Affect Care: None Current Living Situation: Other Current Living Situation Comment: [facility] Other Information That Helps Us Care for You: No Feels Safe at Home: Yes Safety Concerns: Feels Safe At This Time Smoking Status: Never smoker Hx Alcohol Use: No Hx Substance Use: No Review of Systems Review of Systems: All systems reviewed & are unremarkable except as noted in HPI & below Physical Exam Constitutional: WD/WN, vitals as above comfortable; no acute distress Eyes: PERRL, conjunctivae normal, anicteric sclerae ENMT: Ears: no external ear abnormality Nose: no external nose abnormality Mouth: no oropharynx abnormality Facial swelling Neck: trachea midline, no thyromegaly neck nontender Respiratory: normal respiratory effort, lungs clear to auscultation normal percussion; does not use accessory muscles Cardiovascular: Rate/Rhythm: regular rate and regular rhythm Heart Sounds: normal S1 and normal S2; no gallop, no murmur and no cardiac rub Vessels: normal peripheral pulses; no JVD Gastrointestinal (Abdomen): normal bowel sounds, soft, nontender, no hepatosplenomegaly Musculoskeletal: no cyanosis or clubbing, extremities motor strength 5/5 Spine: thoracic spine normal to inspection and lumbar spine normal to i nspection; no cervical spinal tenderness Skin: no rashes, warm and dry normal turgor; no lesions Neurologic: patellar DTR's 2+ bilat, sensation intact no focal motor deficits Psychiatric: A+Ox3, euthymic affect Orientation: cooperative Lymphatic: no cervical or axillary lymphadenopathy no inguinal lymphadenopathy Results & Data Vital Signs (Past 12 Hours) Vital Signs Temp Pulse Pulse Resp BP BP Pulse Ox 09/25/18 07:00 37.0 C 65 20 146/83 H 99 09/25/18 03:57 36.7 C 69 22 122/77 99 09/25/18 00:42 77 09/24/18 22:51 37.3 C 78 18 145/73 H 99 Laboratory Results Short CBC 09/24/18 09/25/18 Range/Units 20:23 05:21 WBC 12.42 H 13.30 H (4.8-10.8) K/uL Hgb 13.7 L 13.9 L (14.0-18.0) g/dL Hct 38.5 L 39.0 L (42-52) % Plt Count 118 L 124 L (130-400) K/uL BMP 09/24/18 09/25/18 20:23 05:21 Sodium 141 140 Potassium 3.6 3.7 Chloride 109 H 109 H Carbon Dioxide 26 25 BUN 17 15 Creatinine 1.14 1.07 Glucose 144 H 155 H Calcium 7.9 L 7.9 L Cardiac Enzymes 09/24/18 Range/Units 20:23 Total Creatine Kinase 410 H (39-308) U/L CK-MB (CK-2) < 1.0 (0.5-3.6) ng/ml Troponin I 0.017 (0-0.045) ng/ml Liver Function 09/24/18 09/25/18 Range/Units 20:23 05:21 Total Bilirubin 0.9 D 1.0 (0.2-1) mg/dl Direct Bilirubin 0.3 H (0-0.2) mg/dl AST 36 32 (15-37) U/L ALT 23 22 (12-78) U/L Alkaline Phosphatase 67 67 (45-117) U/L Albumin 2.3 L 2.1 L (3.4-5.0) gm/dl Urine 09/24/18 Range/Units 19:49 Urine Color [place] Urine Appearance Clear (Clear) Urine pH 5.5 (4.5-7.5) Ur Specific [place] 1.039 H (1.000-1.030) Urine Protein 2+ H (Negative) Urine Glucose (UA) Trace H (Negative) Diagnostic Findings Name: VINCENZO ROBERTS [id number] Acct: [id number] Status: DEP : 1960 [facility] [place] Date: 09/23/18 Age: 58 Sex: M Dis Date: Loc: Emergency Department Spec: [id number] Collected: 09/23/18 Received: 09/23/[address]: Leonel Alvarenga M.D. Source: Blood OV Order: Ordered: Blood Culture Comments: Comment Default is separate sites, same time Procedure Result Verified Site Blood Culture Aerobic Preliminary 09/25/18-949 Organism 1 Staphylococcus species Sens Sensitivities to Follow Phoned positive Blood Culture Gram Stain report to [facility] ED on 09/24/18 at 0959 by [id number]. [place] [id number]. Blood Culture Anaerobic Preliminary 09/25/18 Organism 1 Gram positive cocci clusters Sens No Sensitivities to Follow Name: VINCENZO ROBERTS [id number] : 1960 PAGE 1 Printed: 09/25/18 1030 END OF REPORT SINUS CT CT DOSE: 494.71 mGy.cm HISTORY: facial swelling and pain TECHNIQUE: Multiaxial CT images of the paranasal sinuses were performed and reformatted in the coronal plane without the use of contrast. A dose lowering technique was utilized adhering to the principles of ALARA. COMPARISON: None. FINDINGS: The frontal sinuses, ethmoid air cells, sphenoid sinuses, and bilateral maxillary antra are clear. The mastoid air cells are clear. The bilateral ostiomeatal units are patent. The nasal septum is midline. The orbits are unremarkable. Periapical lucencies within the right upper molar. Diffuse subcutaneous edema throughout the head and face. The visualized brain parenchyma is unremarkable. IMPRESSION: 1. The paranasal sinuses and mastoid air cells are clear. 2. Diffuse subcutaneous edema throughout the head and face. Electronically signed by: Hilario Vidal M.D. 09/25/2018 7:13 AM Dictated: 09/25/18 0710
--- NOTE | 2018-09-25 12:47 | Pharmacy Report ---
Pharmacy Abx Initial Consult - Date of Service September 25, 2018 - Pharmacy Dosing Scope Date of Consult: 09/25/18 Consultation requested by: Dr. Mishra Pharmacy is consulted to initiate Vanco & Zosyn IV dosing therapy, order appropriate labs and adjust drug dose/frequency. - Subjective The patient is a 58 year old M admitted on 09/24/18 22:05. - Objective Height: 5 ft 10 in Weight: 112.9 kg Vital Signs (Past 12hrs): Vital Signs Temp Pulse Pulse Resp BP BP Pulse Ox 09/25/18 11:41 36.9 C 09/25/18 07:00 37.0 C 65 20 146/83 H 99 09/25/18 03:57 36.7 C 69 22 122/77 99 09/25/18 00:42 77 Lab Results (24hrs): Laboratory Tests (24 Hours) 09/25/18 09/25/18 09/24/18 05:21 05:21 20:23 WBC 13.30 H Neut # (Auto) 9.87 H ESR Creatinine 1.07 Est Cr Clr Drug Dosing 93.5 Total Creatine Kinase Procalcitonin 0.49 09/24/18 09/24/18 09/24/18 20:23 20:23 20:23 WBC 12.42 H Neut # (Auto) 9.40 H ESR 54 H Creatinine 1.14 Est Cr Clr Drug Dosing 87.4 Total Creatine Kinase 410 H Procalcitonin Micro Results: 09/24/18 19:37 Aerobic Blood Culture - Pending Blood Anaerobic Blood Culture - Pending 09/24/18 19:18 Aerobic Blood Culture - Pending Blood Anaerobic Blood Culture - Pending Laboratory Tests 09/23/18 09/23/18 18:40 19:17 Influenza Type A (PCR) Neg for Influ A Influenza Type B (PCR) Neg for Influ B Bld Cult Staph aureus PCR Negative Blood Culture MRSA PCR Negative Microbiology 09/23/18 18:40 Blood Aerobic Blood Culture - Preliminary 09/23/18 18:40 Blood Anaerobic Blood Culture - Preliminary Staphylococcus species Gram positive cocci clusters 09/23/18 17:52 Blood Aerobic Blood Culture - Preliminary 09/23/18 17:52 Blood Anaerobic Blood Culture - Preliminary No growth in Aerobic bottle after 24 hours. No growth in Anaerobic bottle after 24 hours. - Risk Factors for Resistance * Incarcerated * HepC * DM - Assessment & Plan Assessment 58 year old M with Staph sp. bacteremia secondary to SST PCR negative for staph aureus and MRSA but will continue vanco until cultures speciate BMI > 35kg/m2 --> will need to dose on a lower mg/kg basis to prevent supratherapeutic trough levels Combination of Vanco/Zosyn can induce KALLI; will need to deescalate JV Plan Vanco + Zosyn for treatment of Bacteremia Vancomycin IV * Estimated PK Parameters: Vd 0.55 L/kg, Romel 0.068 hr-1, t1/2 10 hr * Loading dose: 2,250 mg (20 mg/kg) * Maintenance dose: 1,250 mg IV (11 mg/kg) every 12 hours * Goal trough level for Bacteremia : 15 to 20 mcg/mL * Trough/Random level ordered for 09/26/18 @ 2029 (prior to 4th maintenance dose secondary to large Vd morbid obesity) * A less than traditional dose and/or extended dosing interval have been selected due to likelihood of drug accumulation in obese patient Piperacillin/tazobactam * 4.5g bolus administered over 30 minutes, then 4.5 g IV extended infusion every 8 hours for CrCl greater than 20 mL/min * Aggressive dosing selected due to BMI 35 or more Pharmacy will continue to follow and will adjust dose/frequency as necessary. Thank you.
--- NOTE | 2018-09-25 16:05 | Hospitalist Progress Note ---
Date of Service September 25, 2018 Assessment & Plan (1) Bacteremia due to Staphylococcus: Was in the ER day before yesterday -09/23 with fever and chills Admitted with same symptoms of fever and chills and generalized weakness Blood culture taken on 09/23-showed Staphylococcus species and coagulase-negative staph not lugdunensis Has facial swelling, redness warmth and with tenderness on palpation Likely has a spreading facial cellulitis No signs and/or symptoms of meningitis. No auscultated findings of heart murmur and no skin rash Appreciate ID input and recommendation We will continue current antibiotic for now (2) Diabetes: We will continue current diabetic medications Sliding scale insulin for control of blood sugar (3) Hypertension: Remains stable Continue current medications (4) Hepatitis C: No acute issues Normal LFTs INR 1.2 DVT prophylaxis Subcu Lovenox CODE STATUS Full Subjective 09/25 The patient was seen and examined in medical telemetry He is a 58-year-old male with significant past medical history of diabetes type 2, hypertension, hyperlipidemia, depression and history of hepatitis C was admitted with fever and chills for the last few days He was noted to have swelling of the face which is worse this morning During examination he is feeling a lot better He does not have any skin ulceration and/or skin break that was noticeable on examination He denies any other significant symptoms Review of Systems Review of Systems: All systems reviewed and are unremarkable except as noted below Constitutional: + chills and + weakness Swelling of the face with redness and increased local temperature, no drainage from the ears, no swelling of the tongue Neurologic: + generalized weakness; no headache(s), no abnormal speech and no confusion Physical Exam Physical Exam: Complaints to have some facial swelling-which has been improving Constitutional: well developed, well nourished and + ill appearing; no acute distress Eyes: + eyelid abnormality (Minimal swelling of the eyelids on both sides) ENMT: external ear and nose normal, oropharynx normal Neck: trachea midline, no thyromegaly No neck stiffness Respiratory: normal respiratory effort; no respiratory distress Auscultation: lungs clear to auscultation bilaterally Cardiovascular: Rate/Rhythm: regular rate and regular rhythm Heart Sounds: no murmur Palpation: normal PMI Gastrointestinal (Abdomen): Inspection/Auscultation: abdomen normal to inspection and normal bowel sounds Musculoskeletal: No acute arthritis involving any of the joints Skin: no rashes, warm and dry Neurologic: PERRL, EOMI, accommodation nl, no face palsy, no dysarthria moves all extremities; no focal motor deficits Speech / Cognition: normal speech No neck stiffness and or photophobia Psychiatric: A+Ox3, euthymic affect Lymphatic: no cervical or axillary lymphadenopathy Results & Data Vital Signs (Past 12 Hours) Vital Signs Temp Pulse Pulse Resp BP BP Pulse Ox 09/25/18 15:50 62 09/25/18 15:00 36.9 C 58 L 20 148/79 H 97 09/25/18 11:41 36.9 C 09/25/18 07:00 37.0 C 65 20 146/83 H 99 09/25/18 03:57 36.7 C 69 22 122/77 99 Laboratory Results Short CBC 09/24/18 09/25/18 Range/Units 20:23 05:21 WBC 12.42 H 13.30 H (4.8-10.8) K/uL Hgb 13.7 L 13.9 L (14.0-18.0) g/dL Hct 38.5 L 39.0 L (42-52) % Plt Count 118 L 124 L (130-400) K/uL BMP 09/24/18 09/25/18 20:23 05:21 Sodium 141 140 Potassium 3.6 3.7 Chloride 109 H 109 H Carbon Dioxide 26 25 BUN 17 15 Creatinine 1.14 1.07 Glucose 144 H 155 H Calcium 7.9 L 7.9 L Cardiac Enzymes 09/24/18 Range/Units 20:23 Total Creatine Kinase 410 H (39-308) U/L CK-MB (CK-2) < 1.0 (0.5-3.6) ng/ml Troponin I 0.017 (0-0.045) ng/ml Liver Function 09/24/18 09/25/18 Range/Units 20:23 05:21 Total Bilirubin 0.9 D 1.0 (0.2-1) mg/dl Direct Bilirubin 0.3 H (0-0.2) mg/dl AST 36 32 (15-37) U/L ALT 23 22 (12-78) U/L Alkaline Phosphatase 67 67 (45-117) U/L Albumin 2.3 L 2.1 L (3.4-5.0) gm/dl Urine 09/24/18 Range/Units 19:49 Urine Color [place]ha Urine Appearance Clear (Clear) Urine pH 5.5 (4.5-7.5) Ur Specific [place] 1.039 H (1.000-1.030) Urine Protein 2+ H (Negative) Urine Glucose (UA) Trace H (Negative) Medications Administered Current Inpatient Medications Acetaminophen (Tylenol) 650 mg PO Q4H PRN PRN Reason: Pain or Fever Stop: 10/24/18 22:46 Aspirin (Ecotrin Ectab) 81 mg PO DAILY PAUL Stop: 10/25/18 08:59 Last Admin: 09/25/18 08:49 Dose: 81 mg Documented by: Atorvastatin Calcium (Lipitor) 40 mg PO HS [facility] Stop: 10/25/18 20:59 Cyanocobalamin (Vitamin B-12) 100 mcg PO DAILY PAUL Stop: 10/25/18 08:59 Last Admin: 09/25/18 08:50 Dose: 100 mcg Documented by: Dextrose (Dextrose 50%) 25 - 50 ml IV UD PRN; Protocol PRN Reason: Hypoglycemia Protocol Stop: 10/24/18 23:14 Duloxetine HCl (Cymbalta) 60 mg PO HS PAUL Stop: 10/25/18 20:59 Enoxaparin Sodium (Lovenox) 40 mg SQ Q24H PAUL Stop: 10/25/18 08:59 Last Admin: 09/25/18 08:50 Dose: 40 mg Documented by: Folic Acid (Folvite) 1 mg PO DAILY PAUL Stop: 10/25/18 08:59 Last Admin: 09/25/18 08:49 Dose: 1 mg Documented by: Glucagon (Glucagen) 1 mg SQ UD PRN; Protocol PRN Reason: Hypoglycemia Protocol Stop: 10/24/18 23:14 Glucose (Glucose 40%) 15 - 30 gm PO UD PRN; Protocol PRN Reason: Hypoglycemia Protocol Stop: 10/24/18 23:14 Glucose (Dex4 Glucose) 4 - 8 tabs PO UD PRN; Protocol PRN Reason: Hypoglycemia Protocol Stop: 10/24/18 23:14 Sodium Chloride (Nss 1000ml) 1,000 mls @ 100 mls/hr IV .Q10H PAUL Stop: 10/24/18 22:46 Last Admin: 09/25/18 09:12 Dose: 100 mls/hr Documented by: Piperacillin Sod/Tazobactam (Sod 4.5 gm/ Dextrose) 120 mls @ 30 mls/hr IV Q8H [facility]; Protocol Stop: 10/09/18 03:59 Last Infusion: 09/25/18 15:38 Dose: Infused Documented by: Famotidine 20 mg/ Syringe 5 mls @ 2.5 mls/min IV BID [facility] Stop: 10/25/18 05:24 Last Admin: 09/25/18 05:43 Dose: 2.5 mls/min Documented by: Vancomycin HCl 1,250 mg/ (Sodium Chloride) 275 mls @ 125 mls/hr IV Q12 [facility] Stop: 10/09/18 08:59 Last Infusion: 09/25/18 11:23 Dose: Infused Documented by: Insulin Aspart (Novolog Flexpen) 0 units SC ACHS [facility] Stop: 10/25/18 07:29 Last Admin: 09/25/18 12:46 Dose: 5 units Documented by: Insulin Human Isoph/Insulin Regular (Novolin 70/30 Regular) 40 units SQ BIDM [facility] Stop: 10/25/18 07:59 Last Admin: 09/25/18 08:51 Dose: 40 units Documented by: Lisinopril (Zestril) 2.5 mg PO DAILY [facility] Stop: 10/25/18 08:59 Miscellaneous (Carbohydrates For Hypoglycemia) 15 - 30 gm PO UD PRN PRN Reason: Hypoglycemia Treatment Stop: 10/24/18 23:14 Miscellaneous Information (Consult) 1 ea N/A UD PRN PRN Reason: Consult Stop: 10/24/18 22:46 Miscellaneous Information (Consult) 1 ea N/A UD PRN PRN Reason: Consult Stop: 10/24/18 22:46 Nitroglycerin (Nitrostat) 0.4 mg SL UD PRN PRN Reason: Chest Pain Stop: 10/24/18 22:46 Ondansetron HCl (Zofran) 4 mg IV Q6H PRN PRN Reason: Nausea Stop: 10/24/18 22:46 Timolol Maleate (Timoptic 0.5% Oph) 1 drops OPB BID [facility] Stop: 10/25/18 08:59 Last Admin: 09/25/18 08:49 Dose: 1 drops Documented by: (1) Diabetes Diabetes mellitus complication status: with other specified complication Diabetes mellitus mcfp insulin use: unspecified intermediate school teacher insulin use status Diabetes mellitus type: type 2 Qualified Code(s): E11.69 - Type 2 diabetes mellitus with other specified complication
[2018-09-25] MEDS: DULOXETINE HCL 60 MG CAP PO SCH ×2 (20:28→20:38)
[2018-09-25] MEDS: ATORVASTATIN 40 MG TAB PO SCH (20:30)
[2018-09-26] MEDS: PIPERACILLIN/TAZOBACTAM 4.5 GM in DEXTROSE 5% 100 ML IV SCH ×3 (03:51→20:02)
[2018-09-26] MEDS: SODIUM CHLORIDE 0.9% 1000ML 1,000 ML IV SCH ×2 (05:01→16:51)
[2018-09-26 06:43] LABS: Basophils # (auto) 0.03 K/uL (0-0.2); Basophils % (auto) 0.2 %; Hematocrit (blood only) 38.6 % (42-52); Hemoglobin 13.8 g/dL (14.0-18.0); Immature Granulocytes # (auto) 0.11 K/uL (0.00-0.02); Immature Granulocytes % (auto) 0.8 %; Lymphocytes # (auto) 2.03 K/uL (1.2-3.4); Lymphocytes % (auto) 14.2 %; Mean Corpuscular Hgb Conc 35.8 g/dL (32-36); Mean Corpuscular Volume 85.6 fL (80-100); Mean Platelet Volume 11.5 fL (7.4-10.4); Monocytes # (auto) 1.02 K/uL (0.11-0.59); Monocytes % (auto) 7.2 %; Neutrophils # (auto) 11.07 K/uL (1.4-6.5); Neutrophils % (auto) 77.6 %; Platelet Count 152 K/uL (130-400); RDW Coefficient of Variation 13.3 % (11.5-14.5); RDW Standard Deviation 41.8 fL (36.4-46.3); Red Blood Count 4.51 M/uL (4.7-6.1); White Blood Count 14.26 K/uL (4.8-10.8)
[2018-09-26 07:10] LABS: BUN Creatinine Ratio 17.1 (10-20); Calcium 8.1 mg/dl (8.5-10.1); Creatinine Clr Calc Pharmacy 90.8 ml/min; Est GFR (African American) 84.7; Est GFR (Non-African American) 73.1; Potassium 3.9 mmol/L (3.5-5.1)
[2018-09-26] MEDS: ASPIRIN 81 MG ECTAB PO SCH (07:47)
[2018-09-26] MEDS: FOLIC ACID 1 MG TAB PO SCH (07:47)
[2018-09-26] MEDS: CYANOCOBALAMIN (VITAMIN B-12) 100 MCG TABLET PO SCH (07:48)
[2018-09-26] MEDS: ENOXAPARIN INJ 40 MG/0.4 ML SYR SQ SCH (07:49)
[2018-09-26] MEDS: FAMOTIDINE 20 MG in SYRINGE 3 ML IV SCH (07:52)
[2018-09-26] MEDS: TIMOLOL MALEATE 0.5% OP SOLN 5 ML BTL OPB SCH ×2 (07:56→21:59)
[2018-09-26] MEDS: INSULIN ASPART 100 UNITS/ML 3 ML PEN SC SCH ×4 (07:58→22:03)
[2018-09-26] MEDS: INSULIN HUMAN 70% NPH/30% REGULAR SQ SCH ×2 (07:59→16:59)
[2018-09-26] MEDS: VANCOMYCIN HCL 1,250 MG in SODIUM CHLORIDE 0.9% 250 ML IV SCH ×2 (09:11→22:11)
--- NOTE | 2018-09-26 15:34 | Hospitalist Progress Note ---
Date of Service September 26, 2018 Assessment & Plan (1) Bacteremia due to Staphylococcus: Was in the ER day before yesterday -09/23 with fever and chills Admitted with same symptoms of fever and chills and generalized weakness Blood culture taken on 09/23-showed Staphylococcus species and coagulase-negative staph not lugdunensis Has facial swelling, redness warmth and with tenderness on palpation Likely has a spreading facial cellulitis No signs and/or symptoms of meningitis. No auscultated findings of heart murmur and no skin rash Appreciate ID input and recommendation Blood culture is developing coagulase-negative staph not lugdunensis Facial swelling Facial swelling was worse in the morning of admission with increasing swelling, redness, tenderness and increasing local temperature Likely secondary to spreading cellulitis which is the cause of gram-positive bacteremia Facial swelling has been We will continue current antibiotic (2) Diabetes: We will continue current diabetic medications Sliding scale insulin for control of blood sugar (3) Hypertension: Remains stable Continue current medications (4) Hepatitis C: No acute issues Normal LFTs INR 1.2 DVT prophylaxis Subcu Lovenox CODE STATUS Full Subjective 09/25 The patient was seen and examined in medical telemetry He is a 58-year-old male with significant past medical history of diabetes type 2, hypertension, hyperlipidemia, depression and history of hepatitis C was admitted with fever and chills for the last few days He was noted to have swelling of the face which is worse this morning During examination he is feeling a lot better He does not have any skin ulceration and/or skin break that was noticeable on examination He denies any other significant symptoms 09/26 Patient was seen and examined in medical telemetry She still complains to have some facial swelling Denies any other symptoms Denies any fever and/or chills any cough or phlegm, abdominal pain nausea and/or vomiting. Denies any neurological symptoms Review of Systems Review of Systems: All systems reviewed and are unremarkable except as noted below Constitutional: + chills and + weakness Swelling of the face with redness and increased local temperature, no drainage from the ears, no swelling of the tongue Neurologic: + generalized weakness; no headache(s), no abnormal speech and no confusion Physical Exam Physical Exam: No apparent distress at rest Constitutional: well developed, well nourished and + obese; no acute distress Eyes: + eyelid abnormality (Minimal swelling of the eyelids on both sides) ENMT: external ear and nose normal, oropharynx normal Neck: trachea midline, no thyromegaly Respiratory: normal respiratory effort; no respiratory distress Ausculta tion: lungs clear to auscultation bilaterally Cardiovascular: Rate/Rhythm: regular rate and regular rhythm Heart Sounds: no murmur Palpation: normal PMI Gastrointestinal (Abdomen): Inspection/Auscultation: abdomen normal to in spection and normal bowel sounds Skin: no rashes, warm and dry Neurologic: PERRL, EOMI, accommodation nl, no face palsy, no dysarthria mo ves all extremities; no focal motor deficits Speech / Cognition: normal speech Psychiatric: A+Ox3, euthymic affect Lymphatic: no cervical or axillary lymphadenopathy Results & Data Vital Signs (Past 12 Hours) Vital Signs Temp Pulse Pulse Resp BP Pulse Ox 09/26/18 12:00 36.5 C 54 L 20 166/54 H 99 09/26/18 08:00 36.5 C 53 L 56 L 19 155/82 H 99 09/26/18 03:54 36.6 C 54 L 16 156/78 H 96 Laboratory Results Short CBC 09/26/18 Range/Units 06:10 WBC 14.26 H (4.8-10.8) K/uL Hgb 13.8 L (14.0-18.0) g/dL Hct 38.6 L (42-52) % Plt Count 152 (130-400) K/uL BMP 09/26/18 06:10 Sodium 141 Potassium 3.9 Chloride 111 H Carbon Dioxide 26 BUN 19 H Creatinine 1.10 Glucose 208 H Calcium 8.1 L Medications Administered Current Inpatient Medications Acetaminophen (Tylenol) 650 mg PO Q4H PRN PRN Reason: Pain or Fever Stop: 10/24/18 22:46 Aspirin (Ecotrin Ectab) 81 mg PO DAILY [facility] Stop: 10/25/18 08:59 Last Admin: 09/26/18 07:47 Dose: 81 mg Documented by: Atorvastatin Calcium (Lipitor) 40 mg PO HS [facility] Stop: 10/25/18 20:59 Last Admin: 09/25/18 20:30 Dose: 40 mg Documented by: Cyanocobalamin (Vitamin B-12) 100 mcg PO DAILY [facility] Stop: 10/25/18 08:59 Last Admin: 09/26/18 07:48 Dose: 100 mcg Documented by: Dextrose (Dextrose 50%) 25 - 50 ml IV UD PRN; Protocol PRN Reason: Hypoglycemia Protocol Stop: 10/24/18 23:14 Duloxetine HCl (Cymbalta) 60 mg PO HS [facility] Stop: 10/25/18 20:59 Last Admin: 09/25/18 20:38 Dose: Not Given Documented by: Enoxaparin Sodium (Lovenox) 40 mg SQ Q24H [facility] Stop: 10/25/18 08:59 Last Admin: 09/26/18 07:49 Dose: 40 mg Documented by: Famotidine (Pepcid) 20 mg PO BID [facility]; Protocol Stop: 10/26/18 20:59 Folic Acid (Folvite) 1 mg PO DAILY [facility] Stop: 10/25/18 08:59 Last Admin: 09/26/18 07:47 Dose: 1 mg Documented by: Glucagon (Glucagen) 1 mg SQ UD PRN; Protocol PRN Reason: Hypoglycemia Protocol Stop: 10/24/18 23:14 Glucose (Glucose 40%) 15 - 30 gm PO UD PRN; Protocol PRN Reason: Hypoglycemia Protocol Stop: 10/24/18 23:14 Glucose (Dex4 Glucose) 4 - 8 tabs PO UD PRN; Protocol PRN Reason: Hypoglycemia Protocol Stop: 10/24/18 23:14 Sodium Chloride (Nss 1000ml) 1,000 mls @ 100 mls/hr IV .Q10H [facility] Stop: 10/24/18 22:46 Last Admin: 09/26/18 05:01 Dose: 100 mls/hr Documented by: Piperacillin Sod/Tazobactam (Sod 4.5 gm/ Dextrose) 120 mls @ 30 mls/hr IV Q8H [facility]; Protocol Stop: 10/09/18 03:59 Last Admin: 09/26/18 12:03 Dose: 30 mls/hr Documented by: Vancomycin HCl 1,250 mg/ (Sodium Chloride) 275 mls @ 125 mls/hr IV Q12 [facility] Stop: 10/09/18 08:59 Last Infusion: 09/26/18 11:30 Dose: Infused Documented by: Insulin Aspart (Novolog Flexpen) 0 units SC ACHS [facility] Stop: 10/25/18 07:29 Last Admin: 09/26/18 12:08 Dose: 1 units Documented by: Insulin Human Isoph/Insulin Regular (Novolin 70/30 Regular) 40 units SQ BIDM [facility] Stop: 10/25/18 07:59 Last Admin: 09/26/18 07:59 Dose: 40 units Documented by: Lisinopril (Zestril) 2.5 mg PO DAILY [facility] Stop: 10/25/18 08:59 Miscellaneous (Carbohydrates For Hypoglycemia) 15 - 30 gm PO UD PRN PRN Reason: Hypoglycemia Treatment Stop: 10/24/18 23:14 Miscellaneous Information (Consult) 1 ea N/A UD PRN PRN Reason: Consult Stop: 10/24/18 22:46 Miscellaneous Information (Consult) 1 ea N/A UD PRN PRN Reason: Consult Stop: 10/24/18 22:46 Nitroglycerin (Nitrostat) 0.4 mg SL UD PRN PRN Reason: Chest Pain Stop: 10/24/18 22:46 Ondansetron HCl (Zofran) 4 mg IV Q6H PRN PRN Reason: Nausea Stop: 10/24/18 22:46 Timolol Maleate (Timoptic 0.5% Oph) 1 drops OPB BID [facility] Stop: 10/25/18 08:59 Last Admin: 09/26/18 07:56 Dose: 1 drops Documented by: (1) Diabetes Diabetes mellitus complication status: with other specified complication Diabetes mellitus snf insulin use: unspecified meterman insulin use status Diabetes mellitus type: type 2 Qualified Code(s): E11.69 - Type 2 diabetes mellitus with other specified complication
[2018-09-26] MEDS ORDERED: LISINOPRIL 2.5 MG TAB PO SCH (17:00)
[2018-09-26] MEDS ORDERED: VANCOMYCIN TROUGH ONE (20:30)
--- NOTE | 2018-09-26 21:43 | Pharmacy Report ---
Pharmacy Abx Dose Short Note - Date of Service September 26, 2018 - Assessment & Plan Assessment 58 year old M receiving vancomycin for treatment of facial cellulitis (possible bacteremia/unclear if contaminant) Day # 3 of antimicrobial therapy. Plan Vancomycin * Trough level came back subtherapeutic at 9.7 mcg/ml (goal closer to 15 mcg/ml for bacteremia/cellulitis) * Will adjust to vancomycin 1250 mg iv q 8 hrs to target a higher trough level * Renal clearance remains stable - CrCl ~90 ml/min * ID consulted to follow patient as well - will follow and order trough as necessary Pharmacy will continue to follow and will adjust dose/frequency as necessary. Thank you.
[2018-09-26] MEDS: DULOXETINE HCL 60 MG CAP PO SCH (21:54)
[2018-09-26] MEDS: ATORVASTATIN 40 MG TAB PO SCH (21:55)
[2018-09-26] MEDS: ROPINIROLE HCL 0.25 MG TABLET PO SCH (21:55)
[2018-09-26] MEDS: FAMOTIDINE 20 MG TAB PO SCH (21:56)
[2018-09-27] MEDS: SODIUM CHLORIDE 0.9% 1000ML 1,000 ML IV SCH (00:49)
[2018-09-27] MEDS: PIPERACILLIN/TAZOBACTAM 4.5 GM in DEXTROSE 5% 100 ML IV SCH (04:32)
[2018-09-27] MEDS ORDERED: VANCOMYCIN HCL 1,250 MG in SODIUM CHLORIDE 0.9% 250 ML IV SCH (06:00)
[2018-09-27 07:49] LABS: Basophils # (auto) 0.07 K/uL (0-0.2); Basophils % (auto) 0.7 %; Eosinophils # (auto) 0.15 K/uL (0-0.5); Eosinophils % (auto) 1.5 %; Hemoglobin 13.9 g/dL (14.0-18.0); Immature Granulocytes # (auto) 0.47 K/uL (0.00-0.02); Immature Granulocytes % (auto) 4.7 %; Lymphocytes # (auto) 2.75 K/uL (1.2-3.4); Lymphocytes % (auto) 27.5 %; Mean Corpuscular Hgb Conc 35.6 g/dL (32-36); Mean Corpuscular Volume 85.5 fL (80-100); Mean Platelet Volume 10.5 fL (7.4-10.4); Monocytes # (auto) 1.08 K/uL (0.11-0.59); Monocytes % (auto) 10.8 %; Neutrophils # (auto) 5.47 K/uL (1.4-6.5); Neutrophils % (auto) 54.8 %; Nucleated RBC # (auto) 0.02 K/uL (0-0); Nucleated RBC % (auto) 0.2 %; Platelet Count 181 K/uL (130-400); RDW Coefficient of Variation 13.6 % (11.5-14.5); RDW Standard Deviation 42.2 fL (36.4-46.3); Red Blood Count 4.56 M/uL (4.7-6.1); White Blood Count 9.99 K/uL (4.8-10.8)
[2018-09-27] MEDS: INSULIN ASPART 100 UNITS/ML 3 ML PEN SC SCH ×4 (08:09→20:35)
[2018-09-27] MEDS: INSULIN HUMAN 70% NPH/30% REGULAR SQ SCH ×2 (08:10→17:22)
[2018-09-27 08:24] LABS: BUN Creatinine Ratio 13.2 (10-20); Calcium 7.9 mg/dl (8.5-10.1); Creatinine Clr Calc Pharmacy 97.4 ml/min; Est GFR (African American) 95.1; Potassium 3.1 mmol/L (3.5-5.1)
[2018-09-27] MEDS: FOLIC ACID 1 MG TAB PO SCH (08:33)
[2018-09-27] MEDS: FAMOTIDINE 20 MG TAB PO SCH ×2 (08:33→20:36)
[2018-09-27] MEDS: ASPIRIN 81 MG ECTAB PO SCH (08:33)
[2018-09-27] MEDS: CYANOCOBALAMIN (VITAMIN B-12) 100 MCG TABLET PO SCH (08:34)
[2018-09-27] MEDS: ENOXAPARIN INJ 40 MG/0.4 ML SYR SQ SCH (08:34)
[2018-09-27] MEDS: TIMOLOL MALEATE 0.5% OP SOLN 5 ML BTL OPB SCH ×2 (08:35→20:37)
[2018-09-27] MEDS ORDERED: POTASSIUM CHLORIDE 20 MEQ TABCR PO STA ×2 (10:56→11:02)
--- NOTE | 2018-09-27 13:03 | Hospitalist Progress Note ---
Date of Service September 27, 2018 Assessment & Plan (1) Bacteremia due to Staphylococcus: Was in the ER day before yesterday -09/23 with fever and chills Admitted with same symptoms of fever and chills and generalized weakness Blood culture taken on 09/23-showed Staphylococcus species and coagulase-negative staph not lugdunensis Has facial swelling, redness warmth and with tenderness on palpation Likely has a spreading facial cellulitis No signs and/or symptoms of meningitis. No auscultated findings of heart murmur and no skin rash Appreciate ID input and recommendation Blood culture is developing coagulase-negative staph not lugdunensis Discussed with ID-likely contaminants and intravenous antibiotics were stopped this morning 09/27 Started with Bactrim DS twice daily to complete a total 10 days course for facial cellulitis Facial swelling Facial swelling was worse in the morning of admission with increasing swelling, redness, tenderness and increasing local temperature Likely secondary to spreading cellulitis which is the cause of gram-positive bacteremia Facial swelling has been We will continue current antibiotic (2) Diabetes: We will continue current diabetic medications Sliding scale insulin for control of blood sugar Blood sugar has been running in the lower side Will not change any doses of insulin (3) Hypertension: Remains stable Continue current medications (4) Hepatitis C: No acute issues Normal LFTs INR 1.2 DVT prophylaxis Subcu Lovenox CODE STATUS Full Likely discharge tomorrow Subjective 09/25 The patient was seen and examined in medical telemetry He is a 58-year-old male with significant past medical history of diabetes type 2, hypertension, hyperlipidemia, depression and history of hepatitis C was admitted with fever and chills for the last few days He was noted to have swelling of the face which is worse this morning During examination he is feeling a lot better He does not have any skin ulceration and/or skin break that was noticeable on examination He denies any other significant symptoms 09/26 Patient was seen and examined in medical telemetry She still complains to have some facial swelling Denies any other symptoms Denies any fever and/or chills any cough or phlegm, abdominal pain nausea and/or vomiting. Denies any neurological symptoms 09/27 Patient was seen and examined in medical telemetry unit His facial swelling has improved He denies any symptoms of pain, shortness of breath, fever and/or chills His blood sugar was noted to be low at 60 this morning Review of Systems Review of Systems: All systems reviewed and are unremarkable except as noted below Constitutional: + chills and + weakness Swelling of the face with redness and increased local temperature, no drainage from the ears, no swelling of the tongue Neurologic: + generalized weakness; no headache(s), no abnormal speech and no confusion Physical Exam Physical Exam: No apparent distress at rest Constitutional: well developed, well nourished and + obese; no acute distress Eyes: PERRL, conjunctivae normal, anicteric sclerae ENMT: external ear and nose normal, oropharynx normal Neck: trachea midline, no thyromegaly Respiratory: normal respiratory effort; no respiratory distress Auscultation: lungs clear to auscultation bilaterally Cardiovascular: Rate/Rhythm: regular rate and regular rhythm Heart Sounds: no murmur Palpation: normal PMI Gastrointestinal (Abdomen): Inspection/Auscultation: abdomen normal to inspection and normal bowel sounds Skin: no rashes, warm and dry Neurologic: PERRL, EOMI, accommodation nl, no face palsy, no dysarthria moves all extremities; no focal motor deficits Speech / Cognition: normal speech Psychiatric: A+Ox3, euthymic affect Lymphatic: no cervical or axillary lymphadenopathy Results & Data Vital Signs (Past 12 Hours) Vital Signs Temp Pulse Resp BP BP Pulse Ox 09/27/18 11:24 37.0 C 51 L 19 127/59 L 99 09/27/18 07:00 36.8 C 47 L 18 147/83 H 99 09/27/18 03:28 36.9 C 58 L 18 179/80 H 99 Laboratory Results Short CBC 09/27/18 Range/Units 07:26 WBC 9.99 (4.8-10.8) K/uL Hgb 13.9 L (14.0-18.0) g/dL Hct 39.0 L (42-52) % Plt Count 181 (130-400) K/uL BMP 09/27/18 07:26 Sodium 144 Potassium 3.1 L D Chloride 112 H Carbon Dioxide 25 BUN 13 Creatinine 1.00 Glucose 61 L Calcium 7.9 L Medications Administered Current Inpatient Medications Acetaminophen (Tylenol) 650 mg PO Q4H PRN PRN Reason: Pain or Fever Stop: 10/24/18 22:46 Aspirin (Ecotrin Ectab) 81 mg PO DAILY [facility] Stop: 10/25/18 08:59 Last Admin: 09/27/18 08:33 Dose: 81 mg Documented by: Atorvastatin Calcium (Lipitor) 40 mg PO HS [facility] Stop: 10/25/18 20:59 Last Admin: 09/26/18 21:55 Dose: 40 mg Documented by: Cyanocobalamin (Vitamin B-12) 100 mcg PO DAILY [facility] Stop: 10/25/18 08:59 Last Admin: 09/27/18 08:34 Dose: 100 mcg Documented by: Dextrose (Dextrose 50%) 25 - 50 ml IV UD PRN; Protocol PRN Reason: Hypoglycemia Protocol Stop: 10/24/18 23:14 Duloxetine HCl (Cymbalta) 60 mg PO HS [facility] Stop: 10/25/18 20:59 Last Admin: 09/26/18 21:54 Dose: Not Given Documented by: Enoxaparin Sodium (Lovenox) 40 mg SQ Q24H [facility] Stop: 10/25/18 08:59 Last Admin: 09/27/18 08:34 Dose: 40 mg Documented by: Famotidine (Pepcid) 20 mg PO BID [facility]; Protocol Stop: 10/26/18 20:59 Last Admin: 09/27/18 08:33 Dose: 20 mg Documented by: Folic Acid (Folvite) 1 mg PO DAILY [facility] Stop: 10/25/18 08:59 Last Admin: 09/27/18 08:33 Dose: 1 mg Documented by: Glucagon (Glucagen) 1 mg SQ UD PRN; Protocol PRN Reason: Hypoglycemia Protocol Stop: 10/24/18 23:14 Glucose (Glucose 40%) 15 - 30 gm PO UD PRN; Protocol PRN Reason: Hypoglycemia Protocol Stop: 10/24/18 23:14 Glucose (Dex4 Glucose) 4 - 8 tabs PO UD PRN; Protocol PRN Reason: Hypoglycemia Protocol Stop: 10/24/18 23:14 Insulin Aspart (Novolog Flexpen) 0 units SC ACHS [facility] Stop: 10/25/18 07:29 Last Admin: 09/27/18 11:47 Dose: 2 units Documented by: Insulin Human Isoph/Insulin Regular (Novolin 70/30 Regular) 40 units SQ BIDM [facility] Stop: 10/25/18 07:59 Last Admin: 09/27/18 08:10 Dose: Not Given Documented by: Lisinopril (Zestril) 2.5 mg PO DAILY [facility] Stop: 10/26/18 16:59 Miscellaneous (Carbohydrates For Hypoglycemia) 15 - 30 gm PO UD PRN PRN Reason: Hypoglycemia Treatment Stop: 10/24/18 23:14 Nitroglycerin (Nitrostat) 0.4 mg SL UD PRN PRN Reason: Chest Pain Stop: 10/24/18 22:46 Ondansetron HCl (Zofran) 4 mg IV Q6H PRN PRN Reason: Nausea Stop: 10/24/18 22:46 Ropinirole HCl (Requip) 0.25 mg PO HS [facility] Stop: 10/26/18 20:59 Last Admin: 09/26/18 21:55 Dose: 0.25 mg Documented by: Timolol Maleate (Timoptic 0.5% Oph) 1 drops OPB BID [facility] Stop: 10/25/18 08:59 Last Admin: 09/27/18 08:35 Dose: 1 drops Documented by: Trimethoprim/Sulfamethoxazole (Septra Ds 800/160mg Tab) 1 tab PO Q12 [facility] Stop: 10/07/18 20:59 (1) Diabetes Diabetes mellitus complication status: with other specified complication Diabetes mellitus terminal gauger insulin use: unspecified terminal gauger insulin use status Diabetes mellitus type: type 2 Qualified Code(s): E11.69 - Type 2 diabetes mellitus with other specified complication
[2018-09-27 15:02] LABS: Hydrocodone Urine NEGATIVE NG/ML (CUTOFF=50); Hydromor Urine NEGATIVE NG/ML (CUTOFF=50); Morphine Urine NEGATIVE NG/ML (CUTOFF=50); Norhydrocodone Conf Ur NEGATIVE NG/ML (CUTOFF=50); Noroxycodone Urine NEGATIVE NG/ML (CUTOFF=50); Oxycodone Urine NEGATIVE NG/ML (CUTOFF=50)
[2018-09-27] MEDS ORDERED: EUCERIN CR 120 GM JAR EXT PRN (17:27)
[2018-09-27] MEDS: ATORVASTATIN 40 MG TAB PO SCH (20:35)
[2018-09-27] MEDS: DULOXETINE HCL 60 MG CAP PO SCH (20:35)
[2018-09-27] MEDS: ROPINIROLE HCL 0.25 MG TABLET PO SCH (20:36)
[2018-09-27] MEDS: SULFAMETHOXAZOLE/TRIMETHOPRIM DS 800/160MG TAB PO SCH (20:37)
[2018-09-28 06:10] LABS: Hematocrit (blood only) 38.9 % (42-52); Hemoglobin 14.4 g/dL (14.0-18.0); Mean Corpuscular Volume 85.1 fL (80-100); Mean Platelet Volume 10.4 fL (7.4-10.4); Platelet Count 196 K/uL (130-400); RDW Coefficient of Variation 13.4 % (11.5-14.5); RDW Standard Deviation 41.2 fL (36.4-46.3); Red Blood Count 4.57 M/uL (4.7-6.1); White Blood Count 8.98 K/uL (4.8-10.8)
[2018-09-28 06:41] LABS: Basophils # (auto) 0.07 K/uL (0-0.2); Basophils % (auto) 0.8 %; Eosinophils # (auto) 0.24 K/uL (0-0.5); Eosinophils % (auto) 2.7 %; Immature Granulocytes # (auto) 0.48 K/uL (0.00-0.02); Immature Granulocytes % (auto) 5.3 %; Lymphocytes # (auto) 2.72 K/uL (1.2-3.4); Lymphocytes % (auto) 30.3 %; Monocytes # (auto) 1.08 K/uL (0.11-0.59); Neutrophils # (auto) 4.39 K/uL (1.4-6.5); Neutrophils % (auto) 48.9 %
[2018-09-28 06:48] LABS: BUN Creatinine Ratio 11.8 (10-20); Calcium 8.2 mg/dl (8.5-10.1); Creatinine Clr Calc Pharmacy 100.7 ml/min; Est GFR (African American) 98.6; Est GFR (Non-African American) 85.1; Potassium 3.4 mmol/L (3.5-5.1)
[2018-09-28] MEDS ORDERED: POTASSIUM CHLORIDE 20 MEQ TABCR PO STA (07:58)
[2018-09-28] MEDS: INSULIN ASPART 100 UNITS/ML 3 ML PEN SC SCH ×2 (08:41→12:38)
[2018-09-28] MEDS: INSULIN HUMAN 70% NPH/30% REGULAR SQ SCH (08:42)
[2018-09-28] MEDS: FOLIC ACID 1 MG TAB PO SCH (08:47)
[2018-09-28] MEDS: ASPIRIN 81 MG ECTAB PO SCH (08:47)
[2018-09-28] MEDS: SULFAMETHOXAZOLE/TRIMETHOPRIM DS 800/160MG TAB PO SCH (08:48)
[2018-09-28] MEDS: FAMOTIDINE 20 MG TAB PO SCH (08:48)
[2018-09-28] MEDS: CYANOCOBALAMIN (VITAMIN B-12) 100 MCG TABLET PO SCH (08:49)
[2018-09-28] MEDS: ENOXAPARIN INJ 40 MG/0.4 ML SYR SQ SCH (08:52)
[2018-09-28] MEDS: TIMOLOL MALEATE 0.5% OP SOLN 5 ML BTL OPB SCH (08:54)
--- NOTE | 2018-09-28 10:55 | Hospitalist Progress Note ---
Date of Service September 28, 2018 Assessment & Plan (1) Bacteremia due to Staphylococcus: Was in the ER day before yesterday -09/23 with fever and chills Admitted with same symptoms of fever and chills and generalized weakness Blood culture taken on 09/23-showed Staphylococcus species and coagulase-negative staph not lugdunensis Has facial swelling, redness warmth and with tenderness on palpation Likely has a spreading facial cellulitis No signs and/or symptoms of meningitis. No auscultated findings of heart murmur and no skin rash Appreciate ID input and recommendation Blood culture is developing coagulase-negative staph not lugdunensis Discussed with ID-likely contaminants and intravenous antibiotics were stopped this morning 09/27 Started with Bactrim DS twice daily to complete a total 10 days course for facial cellulitis Minimal stomach discomfort and diarrhea likely secondary to Bactrim Renal function remains stable We will check a stool for C. difficile before discharge Facial swelling Facial swelling was worse in the morning of admission with increasing swelling, redness, tenderness and increasing local temperature Likely secondary to spreading cellulitis which is the cause of gram-positive bacteremia Facial swelling has been We will continue current antibiotic (2) Diabetes: We will continue current diabetic medications Sliding scale insulin for control of blood sugar Blood sugar has been running in the lower side Will not change any doses of insulin (3) Hypertension: Remains stable Continue current medications (4) Hepatitis C: No acute issues Normal LFTs INR 1.2 DVT prophylaxis Subcu Lovenox CODE STATUS Full Discharge this afternoon Subjective 09/25 The patient was seen and examined in medical telemetry He is a 58-year-old male with significant past medical history of diabetes type 2, hypertension, hyperlipidemia, depression and history of hepatitis C was admitted with fever and chills for the last few days He was noted to have swelling of the face which is worse this morning During examination he is feeling a lot better He does not have any skin ulceration and/or skin break that was noticeable on examination He denies any other significant symptoms 09/26 Patient was seen and examined in medical telemetry She still complains to have some facial swelling Denies any other symptoms Denies any fever and/or chills any cough or phlegm, abdominal pain nausea and/or vomiting. Denies any neurological symptoms 09/27 Patient was seen and examined in medical telemetry unit His facial swelling has improved He denies any symptoms of pain, shortness of breath, fever and/or chills His blood sugar was noted to be low at 60 this morning 09/28 Patient was seen and examined in medical telemetry unit He has been feeling a lot better His facial swelling is gone Continues to have some diarrhea and will check his stool for any C. difficile Review of Systems Review of Systems: All systems reviewed and are unremarkable except as noted below Constitutional: + weakness Swelling of the face with redness and increased local temperature, no drainage from the ears, no swelling of the tongue Physical Exam Physical Exam: No apparent distress at rest,lying in bed comfortably Constitutional: well developed, well nourished and + obese; no acute distress Eyes: PERRL, conjunctivae normal, anicteric sclerae ENMT: external ear and nose normal, oropharynx normal Neck: trachea midline, no thyromegaly Swelling of the left cervical lymph nodes Respiratory: normal respiratory effort; no respiratory distress Auscultation: lungs clear to auscultation bilaterally Cardiovascular: Rate/Rhythm: regular rate and regular rhythm Heart Sounds: no murmur Palpation: normal PMI Gastrointestinal (Abdomen): Inspection/Auscultation: abdomen normal to inspection and normal bowel sounds Musculoskeletal: No acute arthritis in any of the joints Skin: no rashes, warm and dry Skin of the face is normalized. No peeling off of the skin Neurologic: PERRL, EOMI, accommodation nl, no face palsy, no dysarthria moves all extremities; no focal motor deficits Speech / Cognition: normal speech Psychiatric: A+Ox3, euthymic affect Lymphatic: + cervical lymphadenopathy Likely secondary to facial cellulitis Results & Data Vital Signs (Past 12 Hours) Vital Signs Temp Pulse Pulse Resp BP Pulse Ox 09/28/18 07:23 36.7 C 66 16 154/79 H 96 09/28/18 03:11 36.8 C 60 18 149/75 H 97 09/28/18 02:13 59 L 09/27/18 22:52 37.1 C 60 20 148/84 H 96 Laboratory Results Short CBC 09/28/18 Range/Units 05:45 WBC 8.98 (4.8-10.8) K/uL Hgb 14.4 (14.0-18.0) g/dL Hct 38.9 L (42-52) % Plt Count 196 (130-400) K/uL BMP 09/28/18 05:45 Sodium 140 Potassium 3.4 L Chloride 108 H Carbon Dioxide 26 BUN 11 Creatinine 0.97 Glucose 133 H Calcium 8.2 L Medications Administered Current Inpatient Medications Acetaminophen (Tylenol) 650 mg PO Q4H PRN PRN Reason: Pain or Fever Stop: 10/24/18 22:46 Aspirin (Ecotrin Ectab) 81 mg PO DAILY [facility] Stop: 10/25/18 08:59 Last Admin: 09/28/18 08:47 Dose: 81 mg Documented by: Atorvastatin Calcium (Lipitor) 40 mg PO HS [facility] Stop: 10/25/18 20:59 Last Admin: 09/27/18 20:35 Dose: 40 mg Documented by: Cyanocobalamin (Vitamin B-12) 100 mcg PO DAILY [facility] Stop: 10/25/18 08:59 Last Admin: 09/28/18 08:49 Dose: 100 mcg Documented by: Dextrose (Dextrose 50%) 25 - 50 ml IV UD PRN; Protocol PRN Reason: Hypoglycemia Protocol Stop: 10/24/18 23:14 Duloxetine HCl (Cymbalta) 60 mg PO [facility] Stop: 10/25/18 20:59 Last Admin: 09/27/18 20:35 Dose: Not Given Documented by: Enoxaparin Sodium (Lovenox) 40 mg SQ Q24H [facility] Stop: 10/25/18 08:59 Last Admin: 09/28/18 08:52 Dose: 40 mg Documented by: Famotidine (Pepcid) 20 mg PO BID [facility]; Protocol Stop: 10/26/18 20:59 Last Admin: 09/28/18 08:48 Dose: 20 mg Documented by: Folic Acid (Folvite) 1 mg PO DAILY [facility] Stop: 10/25/18 08:59 Last Admin: 09/28/18 08:47 Dose: 1 mg Documented by: Glucagon (Glucagen) 1 mg SQ UD PRN; Protocol PRN Reason: Hypoglycemia Protocol Stop: 10/24/18 23:14 Glucose (Glucose 40%) 15 - 30 gm PO UD PRN; Protocol PRN Reason: Hypoglycemia Protocol Stop: 10/24/18 23:14 Glucose (Dex4 Glucose) 4 - 8 tabs PO UD PRN; Protocol PRN Reason: Hypoglycemia Protocol Stop: 10/24/18 23:14 Insulin Aspart (Novolog Flexpen) 0 units SC [facility] Stop: 10/25/18 07:29 Last Admin: 09/28/18 08:41 Dose: Not Given Documented by: Insulin Human Isoph/Insulin Regular (Novolin 70/30 Regular) 40 units SQ BIDM [facility] Stop: 10/25/18 07:59 Last Admin: 09/28/18 08:42 Dose: 40 units Documented by: Lisinopril (Zestril) 2.5 mg PO DAILY [facility] Stop: 10/26/18 16:59 Miscellaneous (Carbohydrates For Hypoglycemia) 15 - 30 gm PO UD PRN PRN Reason: Hypoglycemia Treatment Stop: 10/24/18 23:14 Multi-Ingredient Cream (Hydrocerin) 1 appln EXT UD PRN PRN Reason: Dryness Stop: 10/27/18 17:26 Nitroglycerin (Nitrostat) 0.4 mg SL UD PRN PRN Reason: Chest Pain Stop: 10/24/18 22:46 Ondansetron HCl (Zofran) 4 mg IV Q6H PRN PRN Reason: Nausea Stop: 10/24/18 22:46 Ropinirole HCl (Requip) 0.25 mg PO HS [facility] Stop: 10/26/18 20:59 Last Admin: 09/27/18 20:36 Dose: 0.25 mg Documented by: Timolol Maleate (Timoptic 0.5% Oph) 1 drops OPB BID [facility] Stop: 10/25/18 08:59 Last Admin: 09/28/18 08:54 Dose: 1 drops Documented by: Trimethoprim/Sulfamethoxazole (Septra Ds 800/160mg Tab) 1 tab PO Q12 [facility] Stop: 10/07/18 20:59 Last Admin: 09/28/18 08:48 Dose: 1 tab Documented by: (1) Diabetes Diabetes mellitus complication status: with other specified complication Diabetes mellitus long winder tender insulin use: unspecified long winder tender insulin use status Diabetes mellitus type: type 2 Qualified Code(s): E11.69 - Type 2 diabetes mellitus with other specified complication
[2018-09-28] MEDS ORDERED: LACTOBACILLUS ACIDOPHILUS (FLORANEX) TAB PO SCH (11:30)
--- NOTE | 2018-09-29 07:37 | Discharge Summary ---
Date of Service September 29, 2018 Admission HPI Per Admitting Provider HISTORY OF PRESENT ILLNESS: This patient is a 58-year-old male who is coming from detention with past medical history significant for diabetes, hypertension, high cholesterol, depression and hepatitis C who came to the Emergency Room yesterday because of fever since last Saturday, feeling weak and yesterday he also had episode of vomiting. In the Emergency Room, his point of care lactic acid was slightly high 2.2. He was given I.V. fluids although rest of the workup was negative. His white count was 11. He was discharged back to detention to follow up, but today in the morning on of his blood culture came back as positive for Gram positive cocci so he was started on Levaquin,his second set also came back Gram positive cocci and also he is still having low grade temperatures so he was transferred back here. The patient currently is hemodynamically stable, lactic acid is normal, white count is 12,000, temperature is 37.6. He complains of fevers since last Saturday and since yesterday, he is having severe sweating on the face and also some swelling in the face. Yesterday, he had an episode of vomiting. Today, he had a couple of episodes of diarrhea, no blood in the stools or black stools. No burning micturition. No hematuria. Denies any cough. No blurred vision. No sore throat. No difficulty swallowing. Appetite is not good since last few days. No chest pain. No shortness of breath. No abdominal pain. No swelling in the legs. No rash. He is having some restless legs syndrome. He is not on any medications for that. Currently, his vitals are stable. Admission Exam Per Admitting Provider GENERAL: The patient is obese, not in acute distress. VITAL SIGNS: Temperature 37.6, pulse 69, respiratory rate 18, blood pressure 142/72 and oxygen 95 on room air. HEENT: No pallor. No icterus. Pupils are equal, round and reactive to light. slight selling of the face mainly in maxillary region. maxillary tende rness on palpation present. Oral mucosa normal. NECK: No JVD. No neck masses. No carotid bruits. CARDIOVASCULAR: S1, S2 heard. Regular rate and rhythm. No murmur. No gallop. RESPIRATORY SYSTEM: Normal AP diameter. No accessory muscle use. No wheezing. No crackles. ABDOMEN: Soft. Bowel sounds present. Nontender. No distention. CENTRAL NERVOUS SYSTEM: Cranial nerves II through XII grossly intact. Nonfocal. EXTREMITIES: dry skin changes seen Principal Diagnosis Facial cellulitis, coagulase negative staph bacteremia likely contaminant, diabetes mellitus Discharge Exam Constitutional well developed, well nourished and + obese; no acute distress Eyes PERRL, conjunctivae normal, anicteric sclerae + eyelid abnormality (Minimal swelling of the eyelids on both sides) ENMT external ear and nose normal, oropharynx normal Neck trachea midline, no thyromegaly Respiratory normal respiratory effort; no respiratory distress Auscultation: lungs clear to auscultation bilaterally Cardiovascular Rate/Rhythm: regular rate and regular rhythm Heart Sounds: no murmur Palpation: normal PMI Gastrointestinal (Abdomen) Inspection/Auscultation: abdomen normal to inspection and normal bowel sounds Skin no rashes, warm and dry Neurologic PERRL, EOMI, accommodation nl, no face palsy, no dysarthria moves all extremities; no focal motor deficits Speech / Cognition: normal speech Psychiatric A+Ox3, euthymic affect Lymphatic no cervical or axillary lymphadenopathy + cervical lymphadenopathy Discharge Data Allergies Allergy/AdvReac Type Severity Reaction Status Date / Time No Known Allergies Allergy Unverified 09/24/18 20:24 Consultations 09/24/18 21:22 ED Decision to Admit Stat 09/25/18 08:00 Consult Infectious Diseases Routine Ordered Studies 09/24/18 22:47 CT sinus wo con Urgent Hospital Course (1) Bacteremia due to Staphylococcus: Was in the ER day before yesterday -09/23 with fever and chills Admitted with same symptoms of fever and chills and generalized weakness Blood culture taken on 09/23-showed Staphylococcus species and coagulase-negative staph not lugdunensis Has facial swelling, redness warmth and with tenderness on palpation Likely has a spreading facial cellulitis No signs and/or symptoms of meningitis. No auscultated findings of heart murmur and no skin rash Appreciate ID input and recommendation Blood culture is developing coagulase-negative staph not lugdunensis Discussed with ID-likely contaminants and intravenous antibiotics were stopped this morning 09/27 Started with Bactrim DS twice daily to complete a total 10 days course for facial cellulitis Minimal stomach discomfort and diarrhea likely secondary to Bactrim Renal function remains stable We will check a stool for C. difficile before discharge Facial swelling Facial swelling was worse in the morning of admission with increasing swelling, redness, tenderness and increasing local temperature Likely secondary to spreading cellulitis which is the cause of gram-positive bacteremia Facial swelling has been We will continue current antibiotic (2) Diabetes: We will continue current diabetic medications Sliding scale insulin for control of blood sugar Blood sugar has been running in the lower side Will not change any doses of insulin (3) Hypertension: Remains stable Continue current medications (4) Hepatitis C: No acute issues Normal LFTs INR 1.2 DVT prophylaxis Subcu Lovenox CODE STATUS Full Discharge this afternoon Total Time Total Time Spent Total Time Spent (In Minutes): 35 minutes Total Time Includes: Examination of the Patient, Discharge Planning, Medication Reconciliation and Communication With Other Providers Discharge Plan Discharge Items [facility] Disposition: [facility] Reason For Visit: FEVER Discharge Diagnosis: Facial cellulitis, coagulase negative staph bacteremia likely contaminant, diabetes mellitus Condition: Good Discharge Goals: Decrease discomfort, Improve function and Increase independence Activity: Resume your previous activity Non-emergency contact: Primary Care Provider Call non-emergency contact if: you have any medication questions and your symptoms worsen Follow-up/Referrals: Madison KWON [Primary Care Provider] - (Verbal report given to the on-call nurse) Diet: Carb Consistent or DM2 and Heart Healthy Addtl Provider Instructions: Can use facial cream as advised Prescriptions: New sulfamethoxazole-trimethoprim 800-160 mg Tablet 1 tab PO Q12 6 Days Qty: 12 RF: 0 famotidine 20 mg Tablet 20 mg PO BID 30 Days Qty: 60 RF: 0 ropinirole 0.25 mg Tablet 0.25 mg PO HS 30 Days Qty: 30 RF: 0 Dermacerin Cream 1 applic EXT UD PRN (Reason: dry skin) 10 Days Qty: 1 RF: 0 Lactobacillus acidoph-L.bulgar [Floranex] 1 million cell Tablet 4 tab PO BID 10 Days Qty: 80 RF: 0 Continued ibuprofen 400 mg Tablet 400 mg PO QID PRN (Reason: Fever Or Pain) RF: 0 atorvastatin 40 mg Tablet 40 mg PO HS RF: 0 cyanocobalamin (vitamin B-12) [Vitamin B-12] 100 mcg Tablet 100 mcg PO DAILY RF: 0 Humulin 70/30 U-100 Insulin 100 unit/mL (70-30) Suspension 40 unit SUBCUT BID RF: 0 aspirin [Aspirin Low Dose] 81 mg Tablet,Delayed Release (Dr/Ec) 81 mg PO DAILY RF: 0 acetaminophen 500 mg Tablet 1,000 mg PO QID PRN (Reason: Fever Or Pain) RF: 0 timolol 0.5 % Drops 1 drp OPB BID RF: 0 metformin 1,000 mg Tablet 1,000 mg PO BID RF: 0 Humulin R Regular U-100 Insuln 100 unit/mL Solution 1 sliding scale dose SUBCUT USEASDIRECTD RF: 0 folic acid 1 mg Tablet 1 mg PO DAILY RF: 0 lisinopril 2.5 mg Tablet 2.5 mg PO DAILY RF: 0 Bismatrol 525 mg/15 mL Suspension 1,050 mg PO QID RF: 0 duloxetine 60 mg Capsule,Delayed Release(Dr/Ec) 60 mg PO HS RF: 0 Discontinued levofloxacin 750 mg Tablet 750 mg PO BID RF: 0 Stand-Alone Forms: Replaced By [facility] Discharge Orders: Discharge Order (Routine); Ordered 09/28/18 Ordered By: Silvano Diaz Admission Data Admit Date/Time: 09/24/18 22:05 Attending Provider: Silvano Diaz Admit Provider: Brian Mishra Primary Care Provider: Madison KWON Other Providers: Brian Mishra ; Hai Aj Service: Telemetry Medical Other Interventions: Discharge Summary Assessment (RN) Last Done: 09/28/18 14:26 DC Date/Time DO NOT enter until pt leaves facility: 09/28/18 15:20
== END 2018-09-28 15:20 | DRG 872 ==
LOC: ED 18:43 → 2N 22:05